=== PATIENT | male | born 1950 | race Caucasian/White ===

== ENCOUNTER → 2017-12-14 | Outpatient (CLI) | payer MEDICARE ==
--- NOTE | 2017-12-14 09:07 | XR ---
Left shoulder HISTORY: Pain 3 views of the left shoulder No comparisons The distal acromion is downturned. There is an ossific density projecting at the level of the glenohu meral joint measuring approximately 6 to 7 mm, some smaller ossific densities suspected, total of 3 t his bodies may be present. Acromioclavicular joint arthropathy changes present. 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
== END | disposition home or self-care (01) ==
LOC: RADXRMAIN 08:18
PROVIDERS: ATTEND Pediatrics
DX: M25.512 Pain in left shoulder (principal)

== ENCOUNTER → 2017-12-29 | Outpatient (CLI) | payer MEDICARE ==
--- NOTE | 2017-12-29 14:58 | MR ---
EXAMINATION TYPE: MR shoulder LT wo con DATE OF EXAM: 12/29/2017 COMPARISON: Radiograph 12/14/2017 HISTORY: 67-year-old male with left shoulder pain. TECHNIQUE: Multiplanar, multisequence imaging of the left shoulder is performed without contrast. FINDINGS: Intracapsular portion of the long biceps tendon is not well seen. The upper extracapsular portion tereza ws medial subluxation and increased signal. There is mild tenosynovial fluid. There is extensive tear involving the subscapularis tendon without the far inferior fibers remaining intact. There is mild to moderate fatty atrophy of the subscapularis muscle belly. Moderate degenerative joint space narrowing with marginal spurring and capsular hypertrophy at the ac romioclavicular joint. Trace effusion within the subacromial/subdeltoid bursa. Diffuse heterogeneity and thickening of the supraspinatus tendon and mild heterogeneous signal within the infraspinatus tendon. More focal thickening is present along the anterior supraspinatus tendon f ibers, coronal T2 FS image 10. No high-grade partial or full-thickness tear is identified. No atrophy of either supraspinatus or infraspinatus muscle bellies. Incidentally, there is mild fluid seen extending along the superficial muscle fibers of the infraspinatus muscle. Mild degenerative spurring at the glenohumeral joint with degenerative and torn superior labrum. Ther e is a small 6 mm posterior paralabral cyst. No significant glenohumeral joint effusion. No Hill-Sachs deformity or os acromiale. No suspicious bone marrow replacement. IMPRESSION: 1. Significant tear of the subscapularis tendon. Most of the tendon appears torn with only a few of t he inferior most fibers remaining intact. Mild to moderate fatty atrophy of its muscle belly. 2. Marked supraspinatus tendinosis and lesser degree of infraspinatus tendinosis without evidence of high-grade partial or full-thickness tear of either of these tendons. 3. Some fluid delaminating along the superficial muscle fibers of the infraspinatus could reflect mus dwight strain. 4. Degenerative and torn superior labrum. A 6 mm posterior paralabral cyst suggests posterior tear ex tension. 5. The intracapsular portion of the long head biceps tendon is not well seen and is probably partiall y torn. 6. Mild degenerative change of the glenohumeral joint and moderate AC joint OA.
== END | disposition home or self-care (01) ==
LOC: RADMRIMAIN 11:11
PROVIDERS: ATTEND Pediatrics
DX: S43.432A Superior glenoid labrum lesion of left shoulder, initial encounter (principal); M19.012 Primary osteoarthritis, left shoulder; M62.89 Other specified disorders of muscle; M75.82 Other shoulder lesions, left shoulder

== ENCOUNTER → 2019-04-21 | Day surgery (SDC) | payer MEDICARE ==
[2019-04-18 15:33] VITALS: BMI 25.7
--- NOTE | 2019-04-20 10:34 | HP ---
HISTORY AND PHYSICAL CHIEF COMPLAINT: Left knee pain. HISTORY OF PRESENT ILLNESS: The patient is a 68-year-old retired male who presents with progressive left knee pain for the past several months. He notes catching along with medial pain and swelling. He is having a difficult time getting around. He notes his knee feels unstable. PAST MEDICAL HISTORY: Significant for type 2 diabetes, hypercholesterolemia, and heart disease. PAST SURGICAL HISTORY: Significant for appendectomy. CURRENT MEDICATIONS: 1. Aspirin. 2. Ibuprofen. 3. Lipitor. 4. Metformin. 5. Toprol. ALLERGIES: He denies drug allergies. FAMILY HISTORY: Significant for heart disease and cancer. SOCIAL HISTORY: Significant for previous tobacco use; however, he quit in 2015. REVIEW OF SYSTEMS: Sixteen-point review of systems otherwise reviewed and is noncontributory. PHYSICAL EXAMINATION: On examination, the patient is approximately 6 feet tall, 188 pounds of mesomorphic habitus. HEENT exam is nonfocal. Neck is supple. He has painless passive motion of the left hip. Straight leg raise is negative. Active motion left knee -14 to 115 degrees of flexion. He has a large effusion. He is tender about the medial joint line and medial patellar facet. Collaterals are stable, Evonne is negative, April's elicits medial pain. His distal neurovascular exam appears intact in the left lower extremity. Previous x-rays of the left knee obtained in the office show moderate medial in addition to severe patellofemoral compartment narrowing. IMPRESSION: 1. Left knee moderate medial and severe patellofemoral compartment osteoarthrosis. 2. Possible medial meniscal tear, left knee. RECOMMENDATIONS: I talked to the patient at length regarding his condition along with treatment options. At this point, he continues to have significant pain and mechanical symptoms despite conservative measures. After thorough discussion, he opts to proceed with surgery. We will plan to proceed with arthroscopic evaluation with possible partial medial meniscectomy/medial femoral chondrectomy/possible microfracture. We will likely perform that as an outpatient procedure. The patient underwent preoperative medical and cardiac evaluation. MMODL / IJN: [id number] /
[~2019-04-21] MED LIST: DEXAMETHASONE SOD PHOSPHATE 10 MG/ML 1 ML VIAL IV ONE; EPINEPHrine (PF) 1 ML in SODIUM CHLORIDE 0.9% IRRIGATIO 3,000 ML IRRIGATION ONE; HYDROcodone/APAP 5-325MG 1 EACH TAB PO ONE; KETOROLAC 30 MG/ML 1 ML VIAL IVP ONE; LACTATED RINGERS 1,000 ML IV SCH; LIDOCAINE 1% 20 ML VIAL (10MG/ML) FOR IV START INTRADERMA ONE; LIDOCAINE 1% INJ 10MG/ML (20 ML MDV) ONE; MIDAZOLAM 2 MG/2 ML VIAL IV PRN; MIDAZOLAM 2 MG/2 ML VIAL ONE; PROPOFOL 10 MG/ML 20 ML VIAL IV ONE; fentaNYL (PF) 50 MCG/ML 2 ML AMP ONE
[2019-04-21 09:37] VITALS: RESP 16
[2019-04-21 09:52] LABS: Glucose,Whole Blood 207 mg/dL (75-99)
[2019-04-21] MEDS: ONDANSETRON 4 MG/2 ML VIAL IVP ONE ×2 (09:54→12:14)
--- NOTE | 2019-04-21 11:58 | P.OP ---
Date of Procedure: 04/21/19 Preoperative Diagnosis: Left knee internal derangement Postoperative Diagnosis: Left knee posterior medial meniscal tear/chondrocalcinosis with synovitis Procedure(s) Performed: Left knee arthroscopic partial medial meniscectomy/synovectomy of the medial, lateral, and patellofemoral articulations Anesthesia: ANTHONYA Surgeon: Toribio Mcdonald Estimated Blood Loss (ml): 10 Pathology: none sent Condition: stable Disposition: PACU Indications for Procedure: The patient's a 68-year-old gentleman who presents with progressive left knee pain and mechanical symptoms despite conservative measures. A discussion of the risks and benefits of operative intervention versus continued conservative measures was made with the patient. He opted to proceed with surgery. Operative risks to include infection, neurovascular injury, development of blood clots, possible incomplete resolution of symptoms, possible worsening symptoms and need for subsequent procedures was discussed. Informed consent was obtained. Operative Findings: As below Description of Procedure: The patient was brought to the operating room, and after induction of general anesthesia examined the left knee. Collaterals were stable, Evonne was negative, and posterior drawer was negative. The left lower extremity was prepped and draped in a normal fashion. A superior lateral portal was made through a 3 mm skin incision superior and lateral to the patella. This was used for outflow. A lateral portal was made through a 5 mm vertical skin incision lateral to the patella tendon above the joint line. Diagnostic arthroscopy was performed. On inspection of the medial compartment, a complex tear involving the posterior horn of the medial meniscus in the white-red junction was noted. This was debrided back to stable base with straight baskets and a motorized shaver. Significant chondrocalcinosis was present along with reactive synovitis of the medial, lateral, and patellofemoral compartments. The anterior medial synovitis was debrided with motorized shaver. On inspection of the lateral compartment, a grade 2/3 chondral defect was noted involving the central portion of the lateral femoral condyle. The lateral meniscus was stable and intact. Reactive synovitis involving the anterolateral compartment was debrided with a motorized shaver.. On inspection of the patellofemoral articulation grade 2-3 chondral changes were noted diffusely. Synovitis involving the patellofemoral articulation was debrided with motorized shaver. Several calcium pyrophosphate collections were in the notch and removed with a motorized shaver. The anterior cruciate ligament appeared to be intact. The gutters were clear debris. The knee was then thoroughly irrigated. The portals were closed with Steri-Strips. A sterile dressing was applied in addition to a compression stocking. The patient was awoken from general anesthesia and transferred to recovery room in good condition. Blood loss was estimated at 10 mL. No complications were incurred.
[2019-04-21 12:03] VITALS: TEMP 98.5
[2019-04-21 12:11] LABS: Glucose,Whole Blood 208 mg/dL (75-99)
[2019-04-21] MEDS: HYDROmorphone 0.5 MG/0.5 ML SYRINGE IVP PRN ×2 (12:14→12:20)
[2019-04-21 13:01] VITALS: BP 166/86; PULSE 62
== END | disposition home or self-care (01) ==
LOC: OR 09:17
PROVIDERS: ATTEND Orthopaedic Surgery
DX: S83.232A Complex tear of medial meniscus, current injury, left knee, initial encounter (principal); M11.262 Other chondrocalcinosis, left knee; M65.862 Other synovitis and tenosynovitis, left lower leg; M17.12 Unilateral primary osteoarthritis, left knee; I10 Essential (primary) hypertension; I25.10 Atherosclerotic heart disease of native coronary artery without angina pectoris; I35.1 Nonrheumatic aortic (valve) insufficiency; I77.9 Disorder of arteries and arterioles, unspecified; E11.9 Type 2 diabetes mellitus without complications; E78.2 Mixed hyperlipidemia; N40.0 Benign prostatic hyperplasia without lower urinary tract symptoms; M54.30 Sciatica, unspecified side; Z87.891 Personal history of nicotine dependence; Z79.82 Long term (current) use of aspirin; Z79.84 Long term (current) use of oral hypoglycemic drugs; Z79.1 Long term (current) use of non-steroidal anti-inflammatories (NSAID); Z79.899 Other long term (current) drug therapy; Z90.49 Acquired absence of other specified parts of digestive tract; Z77.22 Contact with and (suspected) exposure to environmental tobacco smoke (acute) (chronic); Z80.3 Family history of malignant neoplasm of breast; Z82.3 Family history of stroke; Z83.3 Family history of diabetes mellitus; Z82.49 Family history of ischemic heart disease and other diseases of the circulatory system; X58.XXXA Exposure to other specified factors, initial encounter
CPT/HCPCS: 29876; 29881; J2250; J1100; J2405; J0171; J2001; J3010; J1885; J2704; J1170

== ENCOUNTER → 2020-03-27 | Outpatient (CLI) | payer MEDICARE ==
--- NOTE | 2020-03-30 12:44 | HP ---
HISTORY AND PHYSICAL CHIEF COMPLAINT: Left knee pain. HISTORY OF PRESENT ILLNESS: Patient is a 69-year-old retired gentleman who presents with progressive left knee pain for the past several years. It has worsened recently. He has tried previous injections and medications without much relief. He notes pain is limiting his normal function and activities. He also notes stiffness and swelling. He had a previous arthroscopy in 2019. PAST MEDICAL HISTORY: Significant for hypertension, type 2 diabetes, hypercholesterolemia, and arthritis. PAST SURGICAL HISTORY: Significant for left knee arthroscopy and appendectomy. CURRENT MEDICATIONS: Aspirin, ibuprofen, metformin, Lipitor, and Toprol. He denies drug allergies. FAMILY HISTORY: Significant for heart disease and cancer. SOCIAL HISTORY: Significant for previous tobacco use; however, he quit in 2015. REVIEW OF SYSTEMS: Sixteen point review of systems otherwise reviewed and is noncontributory. PHYSICAL EXAMINATION: On examination, the patient is approximately 6 feet tall, 200 pounds of endomorphic habitus. HEENT exam is nonfocal. NECK: Supple. He has painless passive motion of his left hip. Straight leg raise is negative. Active motion left knee -12 to 110 degrees of flexion. He has a large effusion. He is tender about the medial joint line. Collaterals are stable, Evonne is negative, April's is equivocal. He has genu varum alignment. His distal neurovascular exam appears intact in the left lower extremity. X-rays to include weightbearing notch, lateral and Merchant views of the left knee obtained in the office show severe medial and patellofemoral compartment narrowing. IMPRESSION: Left knee severe tricompartmental osteoarthrosis. RECOMMENDATIONS: I talked to the patient at length regarding his condition along with treatment options. At this point, he remains quite symptomatic despite extensive conservative measures. After thorough discussion, he opts to proceed with surgery. We will plan to proceed with left total knee arthroplasty. Risks and benefits were discussed at length in layman's terms. We will institute DVT prophylaxis postoperatively. MMODL / IJN: [id number] /
== END | disposition home or self-care (01) ==
LOC: LABPAT 12:37
PROVIDERS: ATTEND Orthopaedic Surgery
DX: Z01.812 Encounter for preprocedural laboratory examination (principal)
CPT/HCPCS: 87070

== ENCOUNTER 2020-04-09 11:08 | Day surgery (SDC) | payer MEDICARE ==
[2020-04-05 11:17] VITALS: BMI 26.4
[~2020-04-09 11:08] MED LIST changes: +ACETAMINOPHEN TAB 500 MG TAB PO ONE; -EPINEPHrine (PF) 1 ML in SODIUM CHLORIDE 0.9% IRRIGATIO 3,000 ML IRRIGATION ONE; -HYDROcodone/APAP 5-325MG 1 EACH TAB PO ONE; +HYDROmorphone 0.5 MG/0.5 ML SYRINGE IVP PRN; -KETOROLAC 30 MG/ML 1 ML VIAL IVP ONE; -LACTATED RINGERS 1,000 ML IV SCH; -LIDOCAINE 1% 20 ML VIAL (10MG/ML) FOR IV START INTRADERMA ONE; -LIDOCAINE 1% INJ 10MG/ML (20 ML MDV) ONE; +MELOXICAM 7.5 MG TAB PO ONE; -MIDAZOLAM 2 MG/2 ML VIAL ONE; +ONDANSETRON 4 MG/2 ML VIAL IVP ONE; -PROPOFOL 10 MG/ML 20 ML VIAL IV ONE; +TRANEXAMIC ACID 1,000 MG in SODIUM CHLORIDE 0.9% 100 ML IVPB ONE; -fentaNYL (PF) 50 MCG/ML 2 ML AMP ONE
[2020-04-09 11:32] LABS: Glucose,Whole Blood 125 mg/dL (75-99)
[2020-04-09] MEDS ORDERED: ONDANSETRON 4 MG/2 ML VIAL ONE (11:33)
[2020-04-09] MEDS ORDERED: ACETAMINOPHEN TAB 500 MG TAB ONE (11:33)
[2020-04-09] MEDS: LACTATED RINGERS 1,000 ML IV SCH (11:36)
[2020-04-09] MEDS ORDERED: MIDAZOLAM 2 MG/2 ML VIAL IV ONE (12:08)
[2020-04-09] MEDS ORDERED: fentaNYL (PF) 50 MCG/ML 2 ML AMP IV ONE (12:08)
[2020-04-09] MEDS ORDERED: ROPIVACAINE 246.25 MG, EPINEPHrine 0.5 MG, KETOROLAC 30 MG, cloNIDine HCL/PF 80 MCG, WA... MISCELLANE ONE ×5 (12:46)
[2020-04-09] MEDS ORDERED: TRANEXAMIC ACID 1,000 MG/10 ML VIAL ONE (13:29)
[2020-04-09] MEDS ORDERED: PROPOFOL 10 MG/ML 20 ML VIAL IV ONE (13:29)
[2020-04-09] MEDS ORDERED: SODIUM CHLORIDE 0.9% 100 ML BAG ONE (13:29)
[2020-04-09] MEDS ORDERED: fentaNYL (PF) 50 MCG/ML 2 ML AMP ONE (13:29)
[2020-04-09] MEDS ORDERED: MIDAZOLAM 2 MG/2 ML VIAL ONE (13:29)
[2020-04-09] MEDS ORDERED: LACTATED RINGERS 1,000 ML IV ONE (13:56)
[2020-04-09] MEDS ORDERED: ceFAZolin 3,000 MG in SODIUM CHLORIDE 0.9% IRRIGATIO 3,000 ML IRRIGATION ONE (14:01)
[2020-04-09] MEDS ORDERED: ROPIVACAINE 0.2%-NS ON-Q PUMP 1,090 MG, EMPTY PAIN BALL 1 EACH MISCELLANE PRN (14:03)
--- NOTE | 2020-04-09 14:05 | P.ANPRN ---
Procedure Note - Anesthesia - Nerve Block Performed Left Adductor Canal Time Out Performed: Yes (12:08) Date of Procedure: 04/09/20 Procedure Start Time: Procedure Stop Time: Location of Patient: PreOp Indication: Acute Post-Operative Pain, Requested by Surgeon Sedation Type: Sedate with meaningful contact maintained Preparation: Sterile Prep, Sterile Dressing Position: Supine Catheter: Indwelling Needle Types: Pajunk Needle Gauge: 21 Ultrasound used to visualize needle placement: Yes Ultrasound used to observe medication spread: Yes Injectate: 0.5% Ropivacaine (see comment for volume) (20cc) Blood Aspirated: No Pain Paresthesia on Injection Noted: No Resistance on Injection: Normal Image Stored and Saved: Yes Events: Uneventful and Well Tolerated
[2020-04-09] MEDS ORDERED: NALOXONE 0.4 MG/ML 1 ML VIAL IV PRN (14:58)
[2020-04-09] MEDS ORDERED: MAGNESIUM HYDROXIDE 2,400 MG/10 ML CUP PO PRN (14:58)
[2020-04-09] MEDS ORDERED: ONDANSETRON 4 MG/2 ML VIAL IVP PRN (14:58)
[2020-04-09] MEDS ORDERED: traMADol 50 MG TAB PO PRN (14:58)
[2020-04-09] MEDS ORDERED: ACETAMINOPHEN TAB 325 MG TAB PO PRN (14:58)
[2020-04-09] MEDS ORDERED: HYDROcodone/APAP 5-325MG 1 EACH TAB PO PRN (14:58)
[2020-04-09] MEDS ORDERED: HYDROmorphone 0.5 MG/0.5 ML SYRINGE IVP PRN (14:58)
--- NOTE | 2020-04-09 15:42 | P.OP ---
Date of Procedure: 04/09/20 Preoperative Diagnosis: Left knee severe tricompartmental osteoarthrosis Postoperative Diagnosis: Same Procedure(s) Performed: Left total knee arthroplastycruciate retainingcemented Implants: [employer] journey size 7 cemented femoral component, size 6 cemented tibial component, 10 mm articular surface, 38 mm cemented patellar component. This is a cruciate retaining implant. Anesthesia: regional, local, spinal Surgeon: Toribio Mcdonald Steel Die Printer #1: Ted Jenkins Estimated Blood Loss (ml): 50 Pathology: other (Bone fragments) Condition: stable Disposition: PACU Indications for Procedure: The patient's 69-year-old male presents with progressive left knee pain secondary to osteoarthrosis despite conservative measures. A discussion of the risks and benefits of operative intervention versus continued conservative measures was made with patient. He opted to proceed with surgery. Operative risks to include infection, neurovascular injury, fracture, development of blood clots, possible component loosening, possible component failure need for subsequent procedures was discussed. Informed consent was obtained. Operative Findings: As below Description of Procedure: The patient was brought to the operating room, and after induction of spinal anesthesia the left lower extremity was prepped and draped in a normal fashion. The tourniquet was inflated to 270 mmHg. A longitudinal incision extending 3 finger breaths above the superior pole of the patella extending to the medial aspect the tibial tubercle was then made. The skin and subcutaneous tissues were divided sharply. Electrocautery was used for hemostasis. A medial parapatellar arthrotomy was then performed. The medial soft tissues to include the superficial and deep portions of the medial collateral ligament as well as the medial hamstring tendons were elevated subperiosteally. The proximal medial tibia osteophytes were carefully removed. The patella was everted. The knee wa s flexed. A portion of the retropatellar fat pad was excised sharply. The anterior cruciate ligament was sacrificed. A starting hole was made in the distal femur 1 cm anterior to the posterior cruciate origin. An intramedullary femoral guide was gently inserted planning on 5 valgus distal cut with 9 mm distal resection. The cutting block was pinned in place. The distal cut was then made. The posterior referencing sizing guide was utilized. 3 of external rotation was built into the system and verified off the trans- epicondylar axis and the posterior condyles. I felt size 7 was most appropriate. The cutting block was pinned in place. The anterior, posterior, and chamfer cuts were then made. The bone fragments were removed. The trial size 7 femoral component was then placed and was fully seated. There was good anterior to posterior and medial to lateral fit. The distal peg holes were then drilled. The trial component was then removed. Attention was then paid towards preparing the proximal tibia. An extra medullary guide was utilized in line with the tibial shaft and second metatarsal distally. A 3 posterior slope was planned. I planned on 2 mm resection from the medial compartment. The cutting block was pinned in place. The proximal tibial cut was then made. The bone was removed in one fragment. The remnants of the medial and lateral menisci were excised the capsule junction with electrocautery. The tibia sized most appropriately at size 6. The posterior osteophytes off the distal femur were carefully removed with a curved osteotome. The trial tibial and femoral components were placed along with a 10 millimeters articular surface. I was able to obtain full flexion and extension with good stability with varus and valgus stress. After several flexion and extension cycles, the tibial rotation was marked with electrocautery in line with the medial one third of the tibial tubercle. Attention was then paid towards preparing the patella. A patella reamer was utilized taking this down to 14 mm of bone stock. A good flush cut was made. The patella sized most appropriately at 38 millimeters. The peg holes were then drilled. The trial component was placed. The knee was taken through a range of motion. I had good patellofemoral tracking with no hands technique. The trial components were then removed. The tibia was prepared in t he appropriate rotation with appropriate drill and keel punch. The flexion and extension gaps were checked and felt to be symmetric. The posterior soft tissues were injected with ropivacaine. The bony surfaces were prepared with pulsatile lavage and dried. The deep tibial component was then cemented in place and was fully seated. Excess cement was removed. The femoral component was cemented in place and was fully seated. Again excess cement was removed. The trial 10 millimeters surface was then inserted in the knee was put in full extension. The patella component was cemented in place. After the cement had sufficiently hardened, the knee was again taken through a range of motion. Again there was good stability in flexion and extension with varus and valgus stress. The trial articular surface was then removed. The final articular surface was placed and was impacted. Care was taken to avoid any soft tissue interposition. Pulsatile lavage was again utilized. The tourniquet was deflated with approximately 60 minutes total tourniquet time. There was minimal drainage therefore a deep drain was not placed. The medial parapatellar arthrotomy was then closed with #2 Ethibond suture. The subcutaneous tissues were reapproximated interrupted 2-0 Vicryl sutures. The skin was reapproximated with 3-0 subarticular strata fix suture. Skin tape and adhesive was applied. A sterile dressing was applied. The patient was then awoken from sedation and transferred to recovery room in good condition. Blood loss was estimated at 50 milliliters. No complications were incurred. Sponge and needle counts were correct at the end the case. Chris BRAND assisted during the major components this case to include exposure, bone resection, and implantation.
--- NOTE | 2020-04-09 15:57 | XR ---
EXAMINATION TYPE: XR knee limited LT DATE OF EXAM: 04/09/2020 CLINICAL HISTORY: Left knee pain and arthritis status post total knee replacement. TECHNIQUE: Portable AP and crosstable lateral views of the left knee are obtained immediately postop eratively. COMPARISON: None FINDINGS: Metallic hardware from total left knee arthroplasty is seen and appears satisfactory in al ignment and position. There is evidence of recent surgery with diffuse anterior subcutaneous gas. Va scular calcifications. IMPRESSION: METALLIC HARDWARE FROM TOTAL LEFT KNEE ARTHROPLASTY IS SATISFACTORY IN ALIGNMENT.
[2020-04-09 16:17] LABS: Glucose,Whole Blood 161 mg/dL (75-99)
[2020-04-09 20:42] LABS: Glucose,Whole Blood 291 mg/dL (75-99)
[2020-04-09] MEDS ORDERED: SENNOSIDES-DOCUSATE SODIUM 1 EACH TAB PO SCH (21:00)
[2020-04-09] MEDS: INSULIN ASPART (NovoLOG) 100 UNIT/ML VIAL SQ SCH (21:10)
--- NOTE | 2020-04-09 21:16 | P.CONS ---
History of Present Illness - Reason for Consult Consult date: 04/09/20 Medical management Requesting physician: Toribio Mcdonald - Chief Complaint Left knee surgery - History of Present Illness Consultation: This is a pleasant 69-year-old patient of Dr. Kike Mcgee. Chronic stable medical conditions include osteoarthritis, hypertension, hyperlipidemia, diabetes, nonobstructive coronary artery disease. Patient has undergone left total knee arthroplasty. Pain control. No nausea vomiting. Laying in bed. Review of systems: GEN.: None EYES: None HEENT: None NECK: None RESPIRATORY: None CARDIOVASCULAR: None GASTROINTESTINAL: None GENITOURINARY: None MUSCULOSKELETAL: Joint pains LYMPHATICS: None HEMATOLOGICAL: None PSYCHIATRY: None NEUROLOGICAL: None Past medical history to include: Nonobstructive coronary artery disease, diabetes, hypertension, osteoarthritis, hyperlipidemia Social history: Alcohol occasionally, smoked a pack interval 40 years stopped 6 years ago, , retired from the [employer] Physical examination: VITAL SIGNS: 50, 16, 155/78, 97% on room air GENERAL: BMI 26.3, laying in bed, comfortable, awake. EYES: Pupils equal. Conjunctiva normal. HEENT: External appearance of nose and ears normal, oral cavity grossly normal. NECK: JVD not raised; masses not palpable. HEART: First and second heart sounds are normal; no edema. LUNGS: Respiratory rate normal; clear to auscultation. ABDOMEN: Soft, nontender, liver spleen not palpable, no masses palpable. PSYCH: Alert and oriented x3; mood and affect normal. MUSCULAR skeletal: Evidence of OA especially in the hands, dressing over the left knee with Mj wrap NEUROLOGICAL: Cranial nerves grossly intact; no facial asymmetry, power and sensation grossly intact. LYMPHATICS: No lymph nodes palpable in the axilla and neck Investigations: Accu-Cheks 125, 161, 291 Assessment: -Left total knee arthroplasty, -nonobstructive coronary artery disease -Diabetes mellitus type 2 -Essential hypertension -Hyperlipidemia -Primary osteoarthritis Plan: Home medications to resume. Patient is on Lovenox for DVT prophylaxis. Accu- Cheks to be followed. Pain control. Care was discussed with the patient. Question also. Thank you Dr. Almazan Past Medical History Past Medical History: Coronary Artery Disease (CAD), Diabetes Mellitus, Hyperlipidemia, Hypertension, Osteoarthritis (OA) Additional Past Medical History / Comment(s): spouse states has "some blockages but not able to have stent" History of Any Multi-Drug Resistant Organisms: None Reported Past Surgical History: Appendectomy, Heart Catheterization, Orthopedic Surgery Additional Past Surgical History / Comment(s): left knee meniscus repair, COLONOSCOPY Past Anesthesia/Blood Transfusion Reactions: No Reported Reaction Past Psychological History: No Psychological Hx Reported Smoking Status: Former smoker Past Alcohol Use History: Occasional Additional Past Alcohol Use History / Comment(s): quit smoking 2014 yrs ago, smoked 40 yrs. 1ppd Past Drug Use History: None Reported - Past Family History Mother Family Medical History: Cancer Medications and Allergies Home Medications Medication Instructions Recorded Confirmed Type Aspirin 81 mg PO DAILY 11/07/14 04/09/20 History Atorvastatin [Lipitor] 80 mg PO HS 11/07/14 04/09/20 History Metoprolol Tartrate [Lopressor] 25 mg PO BID 11/07/14 04/09/20 History metFORMIN HCL [Glucophage] 500 mg PO BID 11/07/14 04/09/20 History Cyanocobalamin (Vitamin B-12) 1,000 mcg PO DAILY 04/18/19 04/09/20 History [Vitamin B-12] Ibuprofen 800 mg PO Q6H PRN 04/18/19 04/09/20 History Iron 18 mg PO DAILY 04/05/20 04/09/20 History glipiZIDE [Glucotrol] 2.5 mg PO AC-BRKFST 04/05/20 04/09/20 History Allergies Allergy/AdvReac Type Severity Reaction Status Date / Time No Known Allergies Allergy Verified 04/09/20 11:34 Physical Exam Vitals: Vital Signs Temp Pulse Pulse Resp BP BP BP 04/09/20 16:26 50 L 16 155/78 04/09/20 16:11 50 L 16 151/76 04/09/20 15:56 49 L 16 160/76 04/09/20 15:40 49 L 16 151/75 04/09/20 15:26 97.5 F L 50 L 16 162/74 04/09/20 12:22 60 16 162/85 04/09/20 12:03 179/81 04/09/20 11:44 185/83 04/09/20 11:25 98.4 F 62 16 212/93 Pulse Ox 04/09/20 16:26 97 04/09/20 16:11 96 04/09/20 15:56 97 08/04/20 15:40 97 04/09/20 15:26 99 04/09/20 12:22 99 04/09/20 12:03 04/09/20 11:44 04/09/20 11:25 98 Intake and Output 04/09/20 04/09/20 04/09/20 06:59 14:59 22:59 Intake Total 1451 100 Output Total 50 Balance 1451 50 Intake: IV 1451 100 Output: Estimated Blood Loss 50 Other: # Voids 0 Weight 87.8 kg 87.8 kg Results Labs: Abnormal Lab Results - Last 24 Hours (Table) 04/09/20 04/09/20 04/09/20 Range/Units 11:29 16:16 20:38 POC Glucose (mg/dL) 125 H 161 H 291 H (75-99) mg/dL
[2020-04-10 03:01] VITALS: PULSE 72
[2020-04-10] MEDS: HYDROcodone/APAP 5-325MG 1 EACH TAB PO PRN ×2 (06:16→12:00)
[2020-04-10] MEDS: LACTATED RINGERS 1,000 ML IV SCH (06:17)
[2020-04-10 06:54] LABS: Glucose,Whole Blood 153 mg/dL (75-99)
[2020-04-10 07:28] VITALS: BP 165/77; RESP 17; TEMP 98.3
--- NOTE | 2020-04-10 08:05 | P.PN ---
Progress Note - Text The patient is status post, left total knee arthroplasty, adductor canal catheter placement. The catheter was placed for postoperative pain control. Ropivacaine 0.2% is infusing at 8 mLs per hour. The patient has no complaints of left lower extremity numbness or weakness. Patient's VAS score is 0 -10. Assessment: Patient's adductor canal catheter is in place and working appropriately. Plan: continue infusion and adjust it as needed.
[2020-04-10] MEDS: INSULIN ASPART (NovoLOG) 100 UNIT/ML VIAL SQ SCH ×2 (08:12→12:00)
[2020-04-10] MEDS ORDERED: metFORMIN 500 MG TAB PO SCH (09:00)
[2020-04-10] MEDS ORDERED: METOPROLOL TARTRATE 25 MG TAB PO SCH (09:00)
[2020-04-10] MEDS ORDERED: CYANOCOBALAMIN 500 MCG TAB PO SCH (09:00)
[2020-04-10] MEDS ORDERED: ENOXAPARIN 40 MG/0.4 ML SYRINGE SQ SCH (09:00)
[2020-04-10 09:10] LABS: Basophils % (A) 0 %; Eosinophils % (A) 0 %; HCT 34.8 % (39.0-53.0); HGB 11.5 gm/dL (13.0-17.5); Lymphocytes # (A) 1.6 k/uL (1.0-4.8); Lymphocytes % (A) 13 %; MCH 32.1 pg (25.0-35.0); MCV 97.3 fL (80.0-100.0); Mean Platelet Volume 9.4; Monocytes # (A) 0.9 k/uL (0-1.0); Monocytes % (A) 7 %; Neutrophils # (A) 10.3 k/uL (1.3-7.7); Neutrophils % (A) 80 %; Platelet Count 152 k/uL (150-450); RBC 3.58 m/uL (4.30-5.90); RDW 13.4 % (11.5-15.5); WBC 12.9 k/uL (3.8-10.6)
--- NOTE | 2020-04-10 10:41 | P.PN ---
Subjective Progress Note Date: 04/10/20 Principal diagnosis: Status post left total knee arthroplasty Patient is examined today at bedside, he is doing very well. He's done very well with physical therapy. He denies any chest pain or shortness of breath. Objective - Vital Signs Vital signs: Vital Signs Temp 98.3 F 04/10/20 07:00 Pulse 72 04/10/20 07:00 Resp 17 04/10/20 07:00 BP 165/77 04/10/20 07:00 Pulse Ox 98 04/10/20 07:00 Intake & Output 04/09/20 04/10/20 04/10/20 18:59 06:59 18:59 Intake Total 1551 Output Total 50 1600 Balance 1501 -1600 Weight 87.8 kg Intake: IV 1551 Output: Urine 1600 Estimated Blood Loss 50 Other: Voiding Method Urinal # Voids 1 - Exam Left lower extremity: Incision is clean, dry, and intact. The following dressing is in good condition. There is minimal soft tissue swelling and ecchymosis surrounding the medial and lateral aspects of the incision. Calf is soft, no tenderness with palpation. Plantar flexion, dorsiflexion, EHL, FHL are intact. Sensory exam to light touch throughout the extremity is intact, dorsal pedis pulses 2+. - Labs CBC & Chem 7: 04/10/20 07:51 Labs: Abnormal Lab Results - Last 24 Hours (Table) 04/09/20 04/09/20 04/09/20 Range/Units 11:29 16:16 20:38 WBC (3.8-10.6) k/uL RBC (4.30-5.90) m/uL Hgb (13.0-17.5) gm/dL Hct (39.0-53.0) % Neutrophils # (1.3-7.7) k/uL POC Glucose (mg/dL) 125 H 161 H 291 H (75-99) mg/dL 04/10/20 04/10/20 Range/Units 06:52 07:51 WBC 12.9 H (3.8-10.6) k/uL RBC 3.58 L (4.30-5.90) m/uL Hgb 11.5 L (13.0-17.5) gm/dL Hct 34.8 L (39.0-53.0) % Neutrophils # 10.3 H (1.3-7.7) k/uL POC Glucose (mg/dL) 153 H (75-99) mg/dL Assessment and Plan Assessment: Status post left total knee arthroplasty Plan: Pain control, plan for discharge home on oral medication GI and DVT prophylaxis, aspirin 81 mg twice a day for a month Wound care instructions discussed Icing and elevating techniques discussed Home physical therapy and nursing Medical recommendations Discharge planning: Plan for discharge home today Time with Patient: Less than 30
--- NOTE | 2020-04-10 10:44 | P.DS ---
Providers Date of admission: 04/09/2020 Expected date of discharge: 04/10/20 Attending physician: Toribio Mcdonald Consults: 04/09/20 15:00 Consult Physician Routine Consulting Provider: Nestor Maki Consult Reason/Comments: Medical Management Do you want consulting provider notified?: Yes Primary care physician: Anjel Mcgee [facility] Course: Date of admission: 04/09/2020 Date of discharge: 04/10/2020 Admission diagnosis: Status post left total knee arthroplasty Discharge diagnosis: Same Attending physician: Dr Mcdonald Surgical procedures: Left total knee arthroplasty Brief history: Patient is a 69-year-old male with a history of progressive primary left knee arthritis. At this point patient has failed conservative treatment measures and has opted to proceed with a elective left total knee arthroplasty. Hospital course: Details of patient's surgery can be found in operative report. Patient tolerated the procedure well and was subsequently transported to orth opedic floor. Patient's orthopeidc and medical care was provided daily. Patient had daily laboratory tests performed for evaluation of overall blood counts. Patient had daily physical therapy to include strengthening range of motion as well as education with walker ambulation. Patient was treated with Lovenox for their postoperative DVT prophylaxis during their inpatient stay. Patient was noted to have a relatively uneventful postoperative course. Patient reported satisfactory pain control with oral pain medications by postoperative day 0. Patient showed satisfactory progress with physical therapy. Patient moved steadily through the program and had no difficulty meeting the goals by postoperative day 1. Given patient's otherwise satisfactory course and having met physical therapy goals, plan is to discharge patient home on postoperative day 1. Discharge condition/disposition: Patient will be discharged home in stable condition. Discharge medications: Instructions are given on resumption of patient's normal daily medications per primary care recommendation, in addition patient will be prescribed [place] 5 mg/325 mg, Colace 100 mg, aspirin 81 mg. Discharge instructions: 1. Wound care and infection precautions, keep incision dry and covered while showering, no lotions, creams, moisturizers. No soaking, tubs, pools, hottubs. Do not scrub over the incision. 2. Weight-bear as tolerated with walker / cane until follow-up. 3. Ice and elevate when necessary. Do not exceed 20 minutes per hour with ice pack. 4. Utilize compression sleeve until seen at first follow up appointment. 5. Visiting nursing care. 6. Home physical therapy including home CPM. 7. Pain meds and anticoagulants per prescription. 8. Pain medication has potential to cause constipation. Increase oral fluid and fiber intake. Contact primary care provider if you have not had a bowel movement within 48 hours after discharge 9. No anti-inflammatory medication until discussed at first post operative visit, this including Motrin, Aleve, Mobic, Diclofenac. 10. Follow up in office at 2 weeks postop with Chris Jenkins PA-C 11. Follow up with your primary care doctor 7-10 days after discharge. 12. Contact [facility] with any questions, . Procedures: Left total knee arthroplasty Patient Condition at Discharge: Good Plan - Discharge Summary Discharge Rx Participant: Yes New Discharge Prescriptions: New Aspirin [Adult Low Dose Aspirin EC] 81 mg PO BID #60 tablet. Docusate [Colace] 100 mg PO DAILY #30 capsule Hydrocodone/Acetaminophen [[place] 5-325] 1 - 2 each PO Q6HR PRN #40 tab PRN Reason: Pain Discontinued Aspirin 81 mg PO DAILY No Action Metoprolol Tartrate [Lopressor] 25 mg PO BID Atorvastatin [Lipitor] 80 mg PO HS metFORMIN HCL [Glucophage] 500 mg PO BID Cyanocobalamin (Vitamin B-12) [Vitamin B-12] 1,000 mcg PO DAILY Ibuprofen 800 mg PO Q6H PRN PRN Reason: Pain glipiZIDE [Glucotrol] 2.5 mg PO AC-BRKFST Iron 18 mg PO DAILY Discharge Medication List Atorvastatin [Lipitor] 80 mg PO HS 11/07/14 [History] Metoprolol Tartrate [Lopressor] 25 mg PO BID 11/07/14 [History] metFORMIN HCL [Glucophage] 500 mg PO BID 11/07/14 [History] Cyanocobalamin (Vitamin B-12) [Vitamin B-12] 1,000 mcg PO DAILY 04/18/19 [History] Ibuprofen 800 mg PO Q6H PRN 04/18/19 [History] Iron 18 mg PO DAILY 04/05/20 [History] glipiZIDE [Glucotrol] 2.5 mg PO AC-BRKFST 04/05/20 [History] Aspirin [Adult Low Dose Aspirin EC] 81 mg PO BID #60 tablet. 04/10/20 [Rx] Docusate [Colace] 100 mg PO DAILY #30 capsule 04/10/20 [Rx] Hydrocodone/Acetaminophen [[place] 5-325] 1 - 2 each PO Q6HR PRN #40 tab 04/10/20 [Rx] Follow up Appointment(s)/Referral(s): Anjel Mcgee MD [Primary Care Provider] - 1 Week Ted Jenkins PAC [PHYSICIAN AUTOMATION TEST ENGINEER] - 04/24/20 2:10 pm Activity/Diet/Wound Care/Special Instructions: Orthopedic Discharge Instructions: 1. Wound care and infection precautions, keep incision dry and covered while showering, no lotions, creams, moisturizers. No soaking, pools, hot tubs. Do not scrub over incision. 2. Weight-bear as tolerated with walker / cane until follow-up. 3. Ice and elevate when necessary. Do not exceed 20 minutes per hour with ice pack. 4. Utilize compression sleeve until seen at first follow up appointment. 5. Pain meds and anticoagulants per prescription. 6. Pain medication has potential to cause constipation. Increase oral fluid and fiber intake. Contact primary care provider if you have not had a bowel movement within 48 hours after discharge. 7. No anti-inflammatory medication until discussed at first post operative visit, this including Motrin, Aleve, Mobic, Diclofenac. 8. Follow up in office at 2 weeks postop with Chris Jenkins PA-C 9. Follow up with your primary care doctor 7-10 days after discharge. 10. Contact [facility] with any questions, . Discharge Disposition: HOME WITH HOME HEALTH SERVICES
[2020-04-10 11:20] LABS: Glucose,Whole Blood 205 mg/dL (75-99)
[2020-04-10] MEDS ORDERED: ATORVASTATIN 80 MG TAB PO SCH (21:00)
--- NOTE | 2020-04-10 23:33 | P.PN ---
Progress Note - Text Progress Note Date: 04/10/20 - Chief Complaint Left knee surgery Consultation: This is a pleasant 69-year-old patient of Dr. Kike Mcgee. Chronic stable medical conditions include osteoarthritis, hypertension, hyperlipidemia, diabetes, nonobstructive coronary artery disease. Patient has undergone left total knee arthroplasty. Today-pain control. Did tolerate her diet. No dizziness, lightheadedness. Did work with therapy. Review of systems: Was done for constitutional, cardiovascular, GI, pulmonary musculoskeletal. relevant finding as above Current medications reviewed in today's electronic records Physical examination: VITAL SIGNS: 98.3, 72, 17, 165/77, 98% room air GENERAL: Sitting up, comfortable EYES: Pupils equal. Conjunctiva normal. HEENT: External appearance of nose and ears normal, oral cavity grossly normal. NECK: JVD not raised; masses not palpable. HEART: First and second heart sounds are normal; no edema. LUNGS: Respiratory rate normal; clear to auscultation. ABDOMEN: Soft, nontender, liver spleen not palpable, no masses palpable. PSYCH: Alert and oriented x3; mood and affect normal. MUSCULAR skeletal: Evidence of OA especially in the hands, dressing over the left knee with Mj wrap Investigations: White count 12.9 hemoglobin 11.5 Accu-Cheks 205 Assessment: -Left total knee arthroplasty, -nonobstructive coronary artery disease -Diabetes mellitus type 2 -Essential hypertension -Hyperlipidemia -Primary osteoarthritis -Leukocytosis is reactive-secondary to surgery. No clinical evidence of infection Plan: Doing well. Continue current medications. Thank you Dr. Almazan
== END 2020-04-10 13:04 | disposition home health service (06) ==
LOC: OR 11:08 → 4SSUR 14:57 → OR 04-10 13:04
PROVIDERS: ATTEND Orthopaedic Surgery
DX: M17.12 Unilateral primary osteoarthritis, left knee (principal); D72.829 Elevated white blood cell count, unspecified; I25.10 Atherosclerotic heart disease of native coronary artery without angina pectoris; I10 Essential (primary) hypertension; I35.1 Nonrheumatic aortic (valve) insufficiency; E78.2 Mixed hyperlipidemia; N40.0 Benign prostatic hyperplasia without lower urinary tract symptoms; E11.9 Type 2 diabetes mellitus without complications; E78.5 Hyperlipidemia, unspecified; Z79.1 Long term (current) use of non-steroidal anti-inflammatories (NSAID); Z79.84 Long term (current) use of oral hypoglycemic drugs; Z79.82 Long term (current) use of aspirin; Z79.899 Other long term (current) drug therapy; Z87.891 Personal history of nicotine dependence; Z90.49 Acquired absence of other specified parts of digestive tract; Z98.890 Other specified postprocedural states; Z80.9 Family history of malignant neoplasm, unspecified; Z82.49 Family history of ischemic heart disease and other diseases of the circulatory system; Z80.3 Family history of malignant neoplasm of breast; Z83.3 Family history of diabetes mellitus; Z82.3 Family history of stroke
CPT/HCPCS: 97162; 64448; 76942; 85025; 73560; 27447; C1713; C1776; J2250; J0171; J1100; J0690 ×3; J2405; J1650; J3010; J1885; J2795 ×2; J0735; 88300

== ENCOUNTER 2020-11-26 08:14 | Day surgery (SDC) | payer MEDICARE ==
[2020-11-25 13:35] VITALS: BMI 27.1
[~2020-11-26 08:14] MED LIST changes: -ACETAMINOPHEN TAB 500 MG TAB PO ONE; -DEXAMETHASONE SOD PHOSPHATE 10 MG/ML 1 ML VIAL IV ONE; -HYDROmorphone 0.5 MG/0.5 ML SYRINGE IVP PRN; +LACTATED RINGERS 1,000 ML IV SCH; -MELOXICAM 7.5 MG TAB PO ONE; -MIDAZOLAM 2 MG/2 ML VIAL IV PRN; -ONDANSETRON 4 MG/2 ML VIAL IVP ONE; -TRANEXAMIC ACID 1,000 MG in SODIUM CHLORIDE 0.9% 100 ML IVPB ONE
[2020-11-26 08:47] VITALS: TEMP 97.1
[2020-11-26] MEDS ORDERED: LIDOCAINE 1% (10MG/ML) FOR IV START INTRADERMA ONE (08:49)
[2020-11-26 08:55] LABS: Glucose,Whole Blood 100 mg/dL (75-99)
[2020-11-26] MEDS ORDERED: IV FLUID CONTINUATION 1,000 ML IV ONE (09:08)
[2020-11-26] MEDS ORDERED: PROPOFOL 10 MG/ML 20 ML VIAL IV ONE (09:12)
--- NOTE | 2020-11-26 09:15 | P.GSHP ---
History of Present Illness H&P Date: 11/26/20 Chief Complaint: Colon cancer screening Patient here today for colonoscopy. Last colonoscopy 2014. Patient has personal history of colon polyps. No bowel complaints. Past Medical History Past Medical History: Coronary Artery Disease (CAD), Diabetes Mellitus, Hyperlipidemia, Hypertension, Osteoarthritis (OA) Additional Past Medical History / Comment(s): spouse states has "some blockages but not able to have stent" History of Any Multi-Drug Resistant Organisms: None Reported Past Surgical History: Appendectomy, Heart Catheterization, Orthopedic Surgery Additional Past Surgical History / Comment(s): left total knee replacement, left knee meniscus repair, COLONOSCOPY Past Anesthesia/Blood Transfusion Reactions: No Reported Reaction Smoking Status: Former smoker - Past Family History Mother Family Medical History: Cancer Medications and Allergies Home Medications Medication Instructions Recorded Confirmed Type Atorvastatin [Lipitor] 80 mg PO HS 11/07/14 11/25/20 History Metoprolol Tartrate [Lopressor] 25 mg PO BID 11/07/14 11/25/20 History metFORMIN HCL [Glucophage] 500 mg PO BID 11/07/14 11/25/20 History Cyanocobalamin (Vitamin B-12) 500 mcg PO DAILY 04/18/19 11/26/20 History [Vitamin B-12] Ibuprofen 800 mg PO Q6H PRN 04/18/19 11/25/20 History Iron 18 mg PO BID 04/05/20 11/26/20 History glipiZIDE [Glucotrol] 5 mg PO AC-BRKFST 04/05/20 11/26/20 History Aspirin [Adult Low Dose Aspirin EC] 81 mg PO DAILY 11/25/20 11/25/20 History Allergies Allergy/AdvReac Type Severity Reaction Status Date / Time No Known Allergies Allergy Verified 11/26/20 08:43 Surgical - Exam Vital Signs Temp Pulse Resp BP Pulse Ox 97.1 F L 79 16 139/79 98 11/26/20 08:45 11/26/20 08:45 11/26/20 08:45 11/26/20 08:45 11/26/20 08:45 Physical exam: General: Well-developed, well-nourished HEENT: Normocephalic, sclerae nonicteric Abdomen: Nontender, nondistended Extremities: No edema Neuro: Alert and oriented Results - Labs Abnormal Lab Results - Last 24 Hours (Table) 11/26/20 Range/Units 08:50 POC Glucose (mg/dL) 100 H (75-99) mg/dL Assessment and Plan (1) Colon cancer screening Narrative/Plan: Will proceed with colonoscopy Current Visit: Yes Status: Acute Code(s): Z12.11 - ENCOUNTER FOR SCREENING FOR MALIGNANT NEOPLASM OF COLON SNOMED Code(s): 463042501
--- NOTE | 2020-11-26 09:42 | P.PCN ---
Date of Procedure: 11/26/20 Procedure(s) Performed: PREOPERATIVE DIAGNOSIS: Colon cancer screening POSTOPERATIVE DIAGNOSIS: Cecal polyp 2, sigmoid colon polyp PROCEDURE: Colonoscopy with snare polypectomy ANESTHESIA: MAC SURGEON: Cj Rand M.D. SPECIMENS: Cecal polyp, sigmoid polyp ENDOSCOPIC PROCEDURE: The patient was placed on the endoscopy table in the left decubitus position. The Olympus colonoscope was inserted into the anus and passed under direct visualization to the base of the cecum. The appendiceal orifice was visualized. From that point the scope was slowly withdrawn inspecting all surfaces carefully. There were 2 polyps at the base of the cecum. Both removed using the snare with cautery technique. The remainder of the ascending transverse and descending colon appeared normal. In the sigmoid colon a strangulated polyp was seen and removed using the snare with cautery technique. The remainder of the sigmoid and rectum appeared normal. There was no visible diverticulosis. Digital rectal examination was normal. The patient was taken to the recovery room in stable condition per anesthesia guidelines. RECOMMENDATIONS: Resume diet. Follow colonoscopy anticipated 5 years
[2020-11-26 10:00] VITALS: BP 137/67; PULSE 78; RESP 18
== END 2020-11-26 10:16 | disposition home or self-care (01) ==
LOC: ORWHC2ENDO 08:14
PROVIDERS: ATTEND Surgery
DX: Z12.11 Encounter for screening for malignant neoplasm of colon (principal); D12.0 Benign neoplasm of cecum; K63.5 Polyp of colon; I25.10 Atherosclerotic heart disease of native coronary artery without angina pectoris; E11.9 Type 2 diabetes mellitus without complications; E78.5 Hyperlipidemia, unspecified; I10 Essential (primary) hypertension; M19.90 Unspecified osteoarthritis, unspecified site; Z90.89 Acquired absence of other organs; Z96.652 Presence of left artificial knee joint; Z98.890 Other specified postprocedural states; Z87.891 Personal history of nicotine dependence; Z80.9 Family history of malignant neoplasm, unspecified; Z79.84 Long term (current) use of oral hypoglycemic drugs; Z79.1 Long term (current) use of non-steroidal anti-inflammatories (NSAID); Z79.82 Long term (current) use of aspirin; Z79.899 Other long term (current) drug therapy
CPT/HCPCS: 88305; 45385; J2704

== ENCOUNTER → 2021-08-28 | Outpatient (CLI) | payer MEDICARE ==
--- NOTE | 2021-08-28 14:30 | XR ---
EXAMINATION TYPE: XR shoulder complete RT DATE OF EXAM: 08/28/2021 COMPARISON: NONE HISTORY: Pain TECHNIQUE: Three views are submitted. FINDINGS: The osseous structures are intact. There is no acute fracture or dislocation. Arthropathy of the AC joint. Calcification along the humeral head suggestive of calcific tendinosis. IMPRESSION: 1. AC joint arthropathy. 2. Correlate for calcific tendinosis.
== END | disposition home or self-care (01) ==
LOC: RADXRMAIN 13:28
PROVIDERS: ATTEND Physician Assistant
DX: M12.811 Other specific arthropathies, not elsewhere classified, right shoulder (principal)

== ENCOUNTER → 2024-02-01 | Outpatient (CLI) | payer MEDICARE | END | disposition home or self-care (01) | LOC: LABPAT 14:26 | PROVIDERS: ATTEND Orthopaedic Surgery | DX: Z01.812 Encounter for preprocedural laboratory examination (principal) | CPT/HCPCS: 36415; 86850; 86900; 86901; 87070 ==

== ENCOUNTER 2024-02-08 08:31 | Day surgery (SDC) | payer MEDICARE ==
[2024-02-03 14:52] VITALS: BMI 26.3
--- NOTE | 2024-02-07 08:27 | P.HPOR ---
History of Present Illness H&P Date: 02/07/24 Chief Complaint: Right hip pain The patient is a 73-year-old male who presents with right hip pain for the past several years worsening recently. He notes anterior thigh and groin pain worse with weightbearing activities. He notes he's been limping. It is affecting the quality of his life. He notes night symptoms. He tried medications without much relief. Review of Systems As per HPI Past Medical History Past Medical History: Coronary Artery Disease (CAD), Diabetes Mellitus, Hyperlipidemia, Hypertension, Osteoarthritis (OA) Additional Past Medical History / Comment(s): spouse states has "some blockages but not able to have stent". BACK PAIN-DDD History of Any Multi-Drug Resistant Organisms: None Reported Past Surgical History: Appendectomy, Heart Catheterization, Joint Replacement, Orthopedic Surgery Additional Past Surgical History / Comment(s): left total knee replacement, left knee meniscus repair, COLONOSCOPY Past Anesthesia/Blood Transfusion Reactions: No Reported Reaction Smoking Status: Former smoker - Past Family History Mother Family Medical History: Cancer Medications and Allergies Home Medications Medication Instructions Recorded Confirmed Type Atorvastatin [Lipitor] 80 mg PO HS 11/07/14 02/03/24 History Metoprolol Tartrate [Lopressor] 25 mg PO BID 11/07/14 02/03/24 History metFORMIN HCL [Glucophage] 500 mg PO BID 11/07/14 02/03/24 History Cyanocobalamin (Vitamin B-12) 500 mcg PO DAILY 04/18/19 02/03/24 History [Vitamin B-12] Ibuprofen 800 mg PO Q6H PRN 04/18/19 02/03/24 History Iron 18 mg PO BID 04/05/20 02/03/24 History glipiZIDE [Glucotrol] 2.5 mg PO AC-BRKFST 04/05/20 02/03/24 History Aspirin [Adult Low Dose Aspirin EC] 81 mg PO DAILY 11/25/20 02/03/24 History Gabapentin [Neurontin] 300 mg PO BID 02/03/24 02/03/24 History HYDROcodone/APAP 5-325MG [[place] 1 tab PO Q6HR PRN 02/03/24 02/03/24 History 5-325] HYDROcodone/APAP 5-325MG [[place] 1 tab PO TID PRN 02/03/24 02/03/24 History 5-325] Allergies Allergy/AdvReac Type Severity Reaction Status Date / Time No Known Allergies Allergy Verified 02/03/24 14:17 Physical Examination - Hip right Tenderness with palpation: anterior Pain with motion: internal rotation and hip flexion ROM: flexion: 70 degrees ROM: internal rotation: 0 degrees (With pain) ROM: external rotation: 50 degrees Crepitus with motion: Yes Strength: extension: 5/5 Strength: flexion: 5/5 Strength: abduction: 5/5 Tests: impingement tests: positive Results The patient is a well-developed well-nourished male approximately 6 foot tall, 179 pounds of mesomorphic habitus. HEENT exam is nonfocal, neck is supple. He has painful passive motion of the right hip. Clinically he does have some shortening of the right lower extremity compared to the left. His distal neurovascular appears intact in the right lower extremity. - Diagnostic results Hip x-ray: image reviewed (An AP pelvis x-ray shows severe right hip osteoarthrosis with subchondral sclerosis and [id number] changes.) Assessment and Plan Assessment: Right hip severe osteoarthrosis Plan: I talked to the patient at length regarding his condition along with treatment options. At this point he is quite limited because of right hip pain related to his osteoarthrosis despite conservative measures. After a thorough discussion he opts to proceed with surgery. We'll plan to proceed with right total hip arthroplasty utilizing an anterior approach. Risks and benefits were discussed at length in layman's terms. We will institute DVT prophylaxis postoperatively.
[~2024-02-08 08:31] MED LIST changes: +HYDROmorphone 0.5 MG/0.5 ML SYRINGE IVP PRN; -LACTATED RINGERS 1,000 ML IV SCH; +LIDOCAINE 1% (10MG/ML) FOR IV START INTRADERMA PRN; +TRANEXAMIC 1,000 MG/100ML-NACL 1,000 MG in SALINE 1 100ML.BAG IVPB PRN
[2024-02-08] MEDS: IV FLUID CONTINUATION 1,000 ML IV ONE ×2 (09:01→11:59)
[2024-02-08] MEDS: MELOXICAM 7.5 MG TAB PO PRN (09:22)
[2024-02-08] MEDS: ACETAMINOPHEN TAB 500 MG TAB PO PRN (09:22)
[2024-02-08] MEDS: LACTATED RINGERS 1,000 ML IV SCH (09:23)
[2024-02-08] MEDS: ONDANSETRON 4 MG/2 ML VIAL IVP ONE (09:23)
[2024-02-08 09:30] LABS: Glucose,Whole Blood 94 mg/dL (70-110)
[2024-02-08] MEDS: MIDAZOLAM 2 MG/2 ML VIAL IVP ONE (09:45)
--- NOTE | 2024-02-08 09:51 | P.ANPRN ---
Procedure Note - Anesthesia - Nerve Block Performed Right Jose Single Time Out Performed: Yes ([id number]) Date of Procedure: 02/08/24 Procedure Start Time: 09:47 Procedure Stop Time: 09:52 Location of Patient: PreOp Indication: Acute Post-Operative Pain, Requested by Surgeon Sedation Type: Sedate with meaningful contact maintained Preparation: Sterile Prep, Sterile Dressing Position: Supine Catheter: None Needle Types: Pajunk Needle Gauge: 21 Ultrasound used to visualize needle placement: Yes Ultrasound used to observe medication spread: Yes Injectate: 0.5% Ropivacaine (see comment for volume) (20 ml mixed with 4 mg of dexamethasone) Blood Aspirated: No Pain Paresthesia on Injection Noted: No Resistance on Injection: Normal Image Stored and Saved: Yes Events: Uneventful and Well Tolerated
[2024-02-08] MEDS ORDERED: TRANEXAMIC 1,000 MG/100ML-NACL PREMIX BAG ONE (10:49)
[2024-02-08] MEDS ORDERED: PROPOFOL 10 MG/ML 20 ML VIAL IV ONE (10:49)
[2024-02-08] MEDS ORDERED: MIDAZOLAM 2 MG/2 ML VIAL ONE (10:49)
[2024-02-08] MEDS ORDERED: ROPIVACAINE 5 MG/ML 30 ML VIAL ONE (10:49)
[2024-02-08] MEDS ORDERED: LIDOCAINE 1% INJ 10MG/ML (20 ML MDV) ONE (10:49)
[2024-02-08] MEDS: ceFAZolin 3,000 MG in SODIUM CHLORIDE 0.9% IRRIGATIO 3,000 ML IRRIGATION ONE (11:28)
[2024-02-08] MEDS ORDERED: HYDROcodone/APAP 5-325MG 1 EACH TAB PO PRN (12:50)
[2024-02-08] MEDS ORDERED: hydrOXYzine pamoate 25 MG CAP PO PRN (12:50)
[2024-02-08] MEDS ORDERED: NALOXONE 0.4 MG/ML 1 ML VIAL IV PRN (12:50)
[2024-02-08] MEDS ORDERED: MAGNESIUM HYDROXIDE 2,400 MG/30 ML CUP PO PRN (12:50)
[2024-02-08] MEDS ORDERED: HYDROmorphone 0.5 MG/0.5 ML SYRINGE IVP PRN (12:50)
--- NOTE | 2024-02-08 13:10 | P.OP ---
Date of Procedure: 02/08/24 Preoperative Diagnosis: Right hip severe osteoarthrosis Postoperative Diagnosis: Same Procedure(s) Performed: Right total hip arthroplastypress-fitanterior approach Implants: Depuy Corail size 16high offsetcollared press-fit femoral stem, 36mm -2 cobalt chrome femoral head, 56 mm [place] acetabular shell with neutral polyethylene liner. Indications for Procedure: The patient is a 73-year-old male who presents with progressive right hip pain secondary to osteoarthrosis despite conservative measures. A discussion of the risks and benefits of operative intervention versus continued conservative measures was made with the patient. Specific risks of surgery to include infection, neurovascular injury, development of blood clots, leg length discrepancy, fracture, possible component loosening/failure and possible need for subsequent procedures was discussed. Informed consent was obtained. Operative Findings: As below Description of Procedure: The patient was brought to the operating room, and after induction of spinal anesthesia was placed supine on the Tesha table. Positioning was checked with fluoroscopy. The right hip was then prepped and draped in a normal fashion. A 12 cm incision was then made starting 2 fingerbreadths distal and 3 finger breaths posterior to the ASIS in line with the proximal femur. The skin was incised sharply. Subcutaneous tissues were divided sharply. Electrocautery was used for hemostasis. The fascia was split in line with skin incision. The interval between the sartorius and tensor fascia sadie was then bluntly developed. The posterior fascia was opened with electrocautery. The lateral circumflex vessels were identified and cauterized prior to sectioning. A retractor was placed along the superior femoral neck as well as the anterior acetabular rim. A wide capsulotomy was performed. The neck cut was then made at a 45 angle to the shaft approximately 1 1/2 cm above the level of the lesser trochanter. The head was extracted. Attention was then paid towards preparing the acetabular. Anterior and posterior retractors were placed. The remaining capsular labral tissue sharply debrided clearly defining the acetabular margins. I began reaming with a 51 mm reamer taking care to initially medialize then reaming at 45 of abduction and 20 of anteversion. Sequential reaming is performed up to 55 mm. A trial 56 mm acetabular shell was inserted in the same orientation and was fully seated. There was good rim fit and stability. Positioning was checked with fluoroscopy. The final 56 mm acetabular shell was inserted again at 45 of abduction and 20 of anteversion. This was fully seated. There was good rim fit and stability. Again fluoroscopy was used to check the adequacy of placement. A neutral polyethylene liner was gently impacted. Care was taken to avoid any soft tissue interposition. Pulsatile lavage was utilized. Attention was then paid towards preparing the proximal femur. The central region was cleared of soft tissue. A canal finder was used to find the femoral canal. Sequential broaching was performed up to size 16 taking care to lateralize proximally. A calcar mill was used to fashion the medial calcar. There was good rotational stability. A high offset neck along with a 36 mm -2 head was placed. The hip was gently reduced. Fluoroscopy was used to check the adequacy of positioning along with leg lengths. I felt both were good. The hip was gently dislocated. The trial components were removed. The final size 16 collared standard press-fit femoral stem was inserted parallel to the posterior cortex. This was fully seated and there was good rotational stability. A 36 mm -2 head was placed. This was gently impacted. The hip was then gently reduced. Final fluoroscopic view showed adequate placement implant along with hindu of leg length. Stability was checked with 80 of external rotation and 60 of extension of the right hip. The wound was irrigated with sterile lavage. The fascia was closed with running 0 Vicryl suture. There was minimal drainage therefore a deep drain was not placed. The second dose of IV TXA was given. The subcutaneous tissues were reapproximated interrupted 2-0 Vicryl sutures. The skin was reapproximated with 3-0 subcuticular strata fix suture. Skin tape and adhesive was applied. A sterile dressing was applied. The patient was then awoken from sedation and transferred to recovery room in good condition. Blood loss was estimated at 300 mL. No complications were incurred. Sponge and needle counts were correct at the end of the case. Fer BRAND assisted during the major components is case to include exposure, bone resection, implantation, and closure.
[2024-02-08 13:17] LABS: Glucose,Whole Blood 107 mg/dL (70-110)
--- NOTE | 2024-02-08 13:19 | FL ---
EXAMINATION TYPE: FL guidance operating room, XR Hip Limited RT Intraoperative/procedural fluoroscopi c services were provided. Total fluoroscopy time is 53 seconds with a total of 9 submitted images to PACS. Please see the operative/procedural note for further details. DAP: 0.23 122 mGym2
--- NOTE | 2024-02-08 13:55 | XR ---
EXAMINATION TYPE: XR Hip Limited RT DATE OF EXAM: 02/08/2024 1:40 PM CLINICAL INDICATION:Male, 73 years old with history of Status post hip surgery, assess surgical align ment; [facility] COMPARISON: None. TECHNIQUE: XR Hip Limited RT; hip was examined in the frontal projection. FINDINGS: Post arthroplasty changes, hardware is intact, alignment is appropriate. No evidence of fra cture. Postoperative changes of the soft tissues with subcutaneous gas. No evidence of any acute osse ous pathology or joint dislocation. Atherosclerosis of the arterial vasculature. IMPRESSION: Hip arthroplasty with hardware intact and in appropriate alignment. No acute fracture.
[2024-02-08] MEDS: droPERidol 5 MG/2 ML VIAL IVP ONE (14:57)
--- NOTE | 2024-02-08 16:08 | P.CONS ---
History of Present Illness - Reason for Consult Consult date: 02/08/24 - Chief Complaint Hip pain - History of Present Illness This is a 73-year-old white male was admitted to the hospital with right hip pain, he underwent right hip arthroplasty. Currently he is postop, no chest pain no nausea no vomiting no dizziness. Remains afebrile. Minimal right hip pain. No hematuria dysuria hematemesis analgesia. Review of Systems 10 systems reviewed, pertinent positive and negative findings as in HPI. Hip pain, no chest pain or shortness of breath Past Medical History Past Medical History: Coronary Artery Disease (CAD), Diabetes Mellitus, Hyperlipidemia, Hypertension, Osteoarthritis (OA) Additional Past Medical History / Comment(s): spouse states has "some blockages but not able to have stent". BACK PAIN-DDD History of Any Multi-Drug Resistant Organisms: None Reported Past Surgical History: Appendectomy, Heart Catheterization, Joint Replacement, Orthopedic Surgery Additional Past Surgical History / Comment(s): left total knee replacement, left knee meniscus repair, COLONOSCOPY Past Anesthesia/Blood Transfusion Reactions: No Reported Reaction Smoking Status: Former smoker - Past Family History Mother Family Medical History: Cancer Medications and Allergies Home Medications Medication Instructions Recorded Confirmed Type Atorvastatin [Lipitor] 80 mg PO HS 11/07/14 02/08/24 History Metoprolol Tartrate [Lopressor] 25 mg PO BID 11/07/14 02/08/24 History metFORMIN HCL [Glucophage] 500 mg PO BID 11/07/14 02/08/24 History Cyanocobalamin (Vitamin B-12) 500 mcg PO DAILY 04/18/19 02/08/24 History [Vitamin B-12] Ibuprofen 800 mg PO Q6H PRN 04/18/19 02/08/24 History Iron 18 mg PO BID 04/05/20 02/08/24 History glipiZIDE [Glucotrol] 2.5 mg PO AC-BRKFST 04/05/20 02/08/24 History Aspirin [Adult Low Dose Aspirin EC] 81 mg PO DAILY 11/25/20 02/08/24 History Gabapentin [Neurontin] 300 mg PO BID 02/03/24 02/08/24 History HYDROcodone/APAP 5-325MG [[place] 1 tab PO Q6HR PRN 02/03/24 02/08/24 History 5-325] HYDROcodone/APAP 5-325MG [[place] 1 tab PO TID PRN 02/03/24 02/08/24 History 5-325] Allergies Allergy/AdvReac Type Severity Reaction Status Date / Time No Known Allergies Allergy Verified 02/08/24 08:53 Physical Exam Vitals: Vital Signs Temp Pulse Pulse Resp BP Pulse Ox 02/08/24 14:37 54 L 16 133/63 96 02/08/24 14:22 51 L 16 135/62 96 02/08/24 14:07 55 L 16 135/70 98 02/08/24 13:52 55 L 16 131/69 96 02/08/24 13:37 62 16 130/65 98 02/08/24 13:22 56 L 16 121/67 97 02/08/24 13:07 97.6 F 61 16 117/60 96 02/08/24 09:55 59 L 148/64 98 02/08/24 09:35 97.8 F 59 L 16 159/78 99 Intake and Output 02/08/24 02/08/24 02/08/24 06:59 14:59 22:59 Intake Total 1551 Output Total 300 Balance 1251 Intake: IV 1551 Output: Estimated Blood Loss 300 Other: Weight 82.1 kg Constitutional: No acute distress, conversant, pleasant Eyes: Anicteric sclerae, moist conjunctiva, no lid-lag, PERRLA ENMT: NC/AT,Oropharynx clear, no erythema, exudates Neck:Supple, FROM, no masses, or JVD, No carotid bruits; No thyromegaly Lungs: Clear to auscultation, Clear to percussion, Normal respiratory effort, no accessory muscle use Cardiovascular: Heart regular in rate and rhythm, No murmurs, gallops, or rubs no peripheral edema Abdominal: Soft Nontender, non distended, no guarding, no rebound or rigidity, Normoactive bowel sounds No hepatomegaly, No splenomegaly, No palpable mass No abdominal wall hernia noted Skin: Normal temperature, tone, texture, turgor, No induration No subcutaneous nodules, No rash, lesions, No ulcers Extremities:No digital cyanosis No clubbing, Pedal pulses intact and symmetrical Radial pulses intact and symmetrical Normal gait and station, No calf tenderness Psychiatric: Alert and oriented to person, place and time, Appropriate affect Intact judgement Neuro: Muscles Strength 5/5 in all 4 extremities, Sensation to light touch grossly present throughout, Cranial nerves II-XII grossly intact. No focal sensory deficits Assessment and Plan Plan: Assessment and plan: 1. Right hip pain: Status post arthroplasty, supportive care pain control as needed Ortho following. 2. Diabetes type 2 with peripheral neuropathy: Patient is a sliding scale. Continue gabapentin 3. Essential hypertension: Continue outpatient medications, on metoprolol 4. Hyperlipidemia: Continue statin Disposition: Pending clinical progression.
[2024-02-08 16:26] LABS: Glucose,Whole Blood 165 mg/dL (70-110)
[2024-02-08] MEDS: GABAPENTIN 300 MG CAP PO SCH (20:36)
[2024-02-08] MEDS: SENNOSIDES-DOCUSATE SODIUM 1 EACH TAB PO SCH (20:36)
[2024-02-08] MEDS: HYDROcodone/APAP 7.5-325MG 1 EACH TAB PO PRN (20:36)
[2024-02-08 21:56] LABS: Glucose,Whole Blood 220 mg/dL (70-110)
[2024-02-09] MEDS: HYDROmorphone 0.5 MG/0.5 ML SYRINGE IVP PRN (01:05)
[2024-02-09 06:24] LABS: Glucose,Whole Blood 222 mg/dL (70-110)
[2024-02-09 08:00] VITALS: BP 145/81; PULSE 76; RESP 15; TEMP 97.9
[2024-02-09] MEDS: RIVAROXABAN 10 MG TAB PO SCH (08:10)
[2024-02-09 08:40] LABS: Basophils # (A) 0.01 X 10*3/uL (0.00-0.10); Basophils % (A) 0.1 %; Eosinophils # (A) 0 X 10*3/uL (0.04-0.35); Eosinophils % (A) 0 %; HGB 10.4 g/dL (13.0-17.0); Lymphocytes # (A) 0.83 X 10*3/uL (0.90-5.00); Lymphocytes % (A) 7.9 %; MCH 31.2 pg (27.0-32.0); MCHC 33.5 g/dL (32.0-37.0); MCV 93.1 FL (80.0-97.0); Mean Platelet Volume 11.7 FL (9.5-12.2); Monocytes # (A) 0.93 X 10*3/uL (0.20-1.00); Monocytes % (A) 8.8 %; NRBC Per 100 WBC 0 X 10*3/uL (0.00-0.01); Neutrophils # (A) 8.72 X 10*3/uL (1.80-7.70); Neutrophils % (A) 82.8 %; Platelet Count 166 X 10*3/uL (140-440); RBC 3.33 X 10*6/uL (4.40-5.60); RDW 12.6 % (11.5-14.5); WBC 10.53 X 10*3/uL (4.50-10.00)
--- NOTE | 2024-02-09 09:59 | P.DS ---
Providers Date of admission: 02/08/2024 Expected date of discharge: 02/09/24 Attending physician: Toribio Mcdonald Consults: 02/08/24 12:50 Consult Physician Routine Consulting Provider: Nixon Murphy Consult Reason/Comments: medical management s/p direct anterior right total hip arthroplasty Do you want consulting provider notified?: Yes Primary care physician: Stated None Hospital Course: Date of admission: 02/08/2024 Date of discharge: 02/09/2024 Admission diagnosis: Right hip osteoarthritis Discharge diagnosis: Same Attending physician: Dr. Mcdonald Surgical procedures: Direct anterior right total hip arthroplasty Brief history: Patient is a 73-year-old male with a history of progressive primary right hip osteoarthritis. At this point patient has failed conservative treatment measures and has opted to proceed with a elective direct anterior right total hip arthroplasty. Hospital course: Details of patient's surgery can be found in operative report. Patient tolerated the procedure well and was subsequently transported to orthopedic floor. Patient's orthopeidc and medical care was provided daily. Patient had daily laboratory tests performed for evaluation of overall blood counts. Patient had daily physical therapy to include strengthening range of motion as well as education with walker ambulation. Patient was treated with Xarelto for their postoperative DVT prophylaxis during their inpatient stay. Patient was noted to have a relatively uneventful postoperative course. Patient reported satisfactory pain control with oral pain medications by postoperative day 1. Patient showed satisfactory progress with physical therapy. Patient moved steadily through the program and had no difficulty meeting the goals by postoperative day 1. Given patient's otherwise satisfactory course and having met physical therapy goals, plan is to discharge patient home on postoperative day 1. Discharge condition/disposition: Patient will be discharged home in stable condition. Discharge medications: Instructions are given on resumption of patient's normal daily medications per primary care recommendation, in addition patient will be prescribed [place]; senna; Eliquis 2.5 mg twice daily x 2 weeks. Discharge instructions: 1. Wound care and infection precautions, keep incision dry and covered while showering, no lotions, creams, moisturizers. No soaking, tubs, pools, hottubs. Do not scrub over the incision. 2. Weight-bear as tolerated with walker / cane until follow-up. 3. Ice and elevate when necessary. Do not exceed 20 minutes per hour with ice pack. 4. Utilize compression sleeve until seen at first follow up appointment. 5. Visiting nursing care. 6. Home physical therapy. 7. Pain meds and anticoagulants per prescription. 8. Pain medication has potential to cause constipation. Increase oral fluid and fiber intake. Contact primary care provider if you have not had a bowel movement within 48 hours after discharge 9. No anti-inflammatory medication until discussed at first post operative visit, this including Motrin, Aleve, Mobic, Diclofenac. 10. Follow up in office at 2 weeks postop with Chris Jenkins PA-C / Fer Tirado PA-C 11. Follow up with your primary care doctor 7-10 days after discharge. 12. Contact [facility] with any questions, . Assessment: Right hip osteoarthritis Procedures: Direct anterior right total hip arthroplasty Patient Condition at Discharge: Good Plan - Discharge Summary Discharge Rx Participant: No New Discharge Prescriptions: New Sennosides/Docusate Sodium [Senna Plus 8.6-50 mg Softgel] 1 each PO DAILY #20 capsule Apixaban [Eliquis] 2.5 mg PO BID #60 tab HYDROcodone/APAP 7.5-325MG [[place] 7.5-325] 1 - 2 tab PO Q6HR PRN #32 tab PRN Reason: Pain No Action Metoprolol Tartrate [Lopressor] 25 mg PO BID Atorvastatin [Lipitor] 80 mg PO HS metFORMIN HCL [Glucophage] 500 mg PO BID Cyanocobalamin (Vitamin B-12) [Vitamin B-12] 500 mcg PO DAILY Ibuprofen 800 mg PO Q6H PRN PRN Reason: Pain glipiZIDE [Glucotrol] 2.5 mg PO AC-BRKFST Iron 18 mg PO BID Aspirin [Adult Low Dose Aspirin EC] 81 mg PO DAILY HYDROcodone/APAP 5-325MG [[place] 5-325] 1 tab PO Q6HR PRN PRN Reason: Pain HYDROcodone/APAP 5-325MG [[place] 5-325] 1 tab PO TID PRN PRN Reason: Pain Gabapentin [Neurontin] 300 mg PO BID Discharge Medication List Atorvastatin [Lipitor] 80 mg PO HS 11/07/14 [History] Metoprolol Tartrate [Lopressor] 25 mg PO BID 11/07/14 [History] metFORMIN HCL [Glucophage] 500 mg PO BID 11/07/14 [History] Cyanocobalamin (Vitamin B-12) [Vitamin B-12] 500 mcg PO DAILY 04/18/19 [History] Ibuprofen 800 mg PO Q6H PRN 04/18/19 [History] Iron 18 mg PO BID 04/05/20 [History] glipiZIDE [Glucotrol] 2.5 mg PO AC-BRKFST 04/05/20 [History] Aspirin [Adult Low Dose Aspirin EC] 81 mg PO DAILY 11/25/20 [History] Gabapentin [Neurontin] 300 mg PO BID 02/03/24 [History] HYDROcodone/APAP 5-325MG [[place] 5-325] 1 tab PO Q6HR PRN 02/03/24 [History] HYDROcodone/APAP 5-325MG [[place] 5-325] 1 tab PO TID PRN 02/03/24 [History] Apixaban [Eliquis] 2.5 mg PO BID #60 tab 02/09/24 [Rx] HYDROcodone/APAP 7.5-325MG [[place] 7.5-325] 1 - 2 tab PO Q6HR PRN #32 tab 4 [Rx] Sennosides/Docusate Sodium [Senna Plus 8.6-50 mg Softgel] 1 each PO DAILY #20 capsule 02/09/24 [Rx] Follow up Appointment(s)/Referral(s): Fer Tirado PAC [[facility]] - 02/21/24 10:00 am Patient Instructions/Handouts: Anterior Hip Replacement (DC), Anterior Hip Replacement (GEN) Activity/Diet/Wound Care/Special Instructions: Orthopedic Discharge Instructions: 1. Wound care and infection precautions, keep incision dry and covered while showering, no lotions, creams, moisturizers. No soaking, pools, hot tubs. Do not scrub over incision. 2. Weight-bear as tolerated with walker / cane until follow-up. 3. Ice and elevate when necessary. Do not exceed 20 minutes per hour with ice pack. 4. Utilize compression sleeve until seen at first follow up appointment. 5. Pain meds and anticoagulants per prescription. 6. Pain medication has potential to cause constipation. Increase oral fluid and fiber intake. Contact primary care provider if you have not had a bowel movement within 48 hours after discharge. 7. No anti-inflammatory medication until discussed at first post operative visit, this including Motrin, Aleve, Mobic, Diclofenac. 8. Follow up in office at 2 weeks postop with Chris Jenkins PA-C / Fer Tirado PA-C 9. Follow up with your primary care doctor 7-10 days after discharge. 10. Contact [facility] with any questions, . Keep incision clean, dry, intact. While showering, cover fusion tape with Saran wrap. Keep fusion tape on until follow-up appointment in office in 2 weeks Discharge Disposition: HOME WITH HOME HEALTH SERVICES
--- NOTE | 2024-02-09 10:22 | P.PN ---
Subjective Progress Note Date: 02/09/24 Feels better, no chest pain abdominal pain no nausea no vomiting no dizziness. Ambulating. Objective - Vital Signs Vital signs: Vital Signs Temp 97.9 F 02/09/24 07:33 Pulse 76 02/09/24 07:33 Resp 15 02/09/24 07:33 BP 145/81 02/09/24 07:33 Pulse Ox 96 02/09/24 07:33 FiO2 Intake & Output 02/08/24 02/09/24 02/09/24 18:59 06:59 18:59 Intake Total 1821 Output Total 1300 Balance 521 Weight 82.1 kg Intake: IV 1551 Oral 270 Output: Urine 1000 Estimated Blood Loss 300 Other: Voiding Method Toilet Urinal # Voids 8 - Exam Constitutional: No acute distress, conversant, pleasant Eyes: Anicteric sclerae, moist conjunctiva, no lid-lag, PERRLA ENMT: NC/AT,Oropharynx clear, no erythema, exudates Neck:Supple, FROM, no masses, or JVD, No carotid bruits; No thyromegaly Lungs: Clear to auscultation, Clear to percussion, Normal respiratory effort, no accessory muscle use Cardiovascular: Heart regular in rate and rhythm, No murmurs, gallops, or rubs no peripheral edema Abdominal: Soft Nontender, non distended, no guarding, no rebound or rigidity, Normoactive bowel sounds No hepatomegaly, No splenomegaly, No palpable mass No abdominal wall hernia noted Skin: Normal temperature, tone, texture, turgor, No induration No subcutaneous nodules, No rash, lesions, No ulcers Extremities:No digital cyanosis No clubbing, Pedal pulses intact and symmetrical Radial pulses intact and symmetrical Normal gait and station, No calf tenderness Psychiatric: Alert and oriented to person, place and time, Appropriate affect Intact judgement Neuro: Muscles Strength 5/5 in all 4 extremities, Sensation to light touch grossly present throughout, Cranial nerves II-XII grossly intact. No focal sens ory deficits - Labs CBC & Chem 7: 02/09/24 04:38 Labs: Abnormal Lab Results - Last 24 Hours (Table) 02/08/24 02/08/24 02/09/24 Range/Units 16:24 21:54 04:38 WBC 10.53 H (4.50-10.00) X 10*3/uL RBC 3.33 L (4.40-5.60) X 10*6/uL Hgb 10.4 L (13.0-17.0) g/dL Hct 31.0 L (39.6-50.0) % Neutrophils # 8.72 H (1.80-7.70) X 10*3/uL Lymphocytes # 0.83 L (0.90-5.00) X 10*3/uL Eosinophils # 0 L (0.04-0.35) X 10*3/uL POC Glucose (mg/dL) 165 H 220 H (70-110) mg/dL 02/09/24 Range/Units 06:23 WBC (4.50-10.00) X 10*3/uL RBC (4.40-5.60) X 10*6/uL Hgb (13.0-17.0) g/dL Hct (39.6-50.0) % Neutrophils # (1.80-7.70) X 10*3/uL Lymphocytes # (0.90-5.00) X 10*3/uL Eosinophils # (0.04-0.35) X 10*3/uL POC Glucose (mg/dL) 222 H (70-110) mg/dL Assessment and Plan Plan: Assessment and plan: 1. Right hip pain: Status post arthroplasty, supportive care pain control as needed Ortho following. 2. Diabetes type 2 with peripheral neuropathy: Patient is a sliding scale. Continue gabapentin 3. Essential hypertension: Continue outpatient medications, on metoprolol 4. Hyperlipidemia: Continue statin Disposition: Home later today.
[2024-02-09 11:22] LABS: Glucose,Whole Blood 266 mg/dL (70-110)
--- NOTE | 2024-02-09 11:23 | P.PN ---
Subjective Progress Note Date: 02/09/24 Principal diagnosis: Right hip osteoarthritis Patient was seen at bedside this morning lying Psorcon position with dressing present on the right hip. Patient says he has been up walking a little bit since surgery yesterday. Patient says he does have a walker for home. Patient says he has urinated several times since surgery yesterday without issue. Patient says he is looking forward to working with therapy later this morning. Patient denies any other issues at this time. Patient says pain is well- controlled with medication. Objective - Vital Signs Vital signs: Vital Signs Temp 97.9 F 02/09/24 07:33 Pulse 76 02/09/24 07:33 Resp 15 02/09/24 07:33 BP 145/81 02/09/24 07:33 Pulse Ox 96 02/09/24 07:33 FiO2 Intake & Output 02/08/24 02/09/24 02/09/24 18:59 06:59 18:59 Intake Total 1821 Output Total 1300 Balance 521 Weight 82.1 kg Intake: IV 1551 Oral 270 Output: Urine 1000 Estimated Blood Loss 300 Other: Voiding Method Toilet Urinal # Voids 8 - Exam Right hip: Incision is clean, dry, and intact. The exofin fusion tape is in good condition. There is minimal soft tissue swelling and ecchymosis surrounding the medial and lateral aspects of the incision. Calf is soft, no tenderness with palpation. Plantar flexion, dorsiflexion, EHL, FHL are intact. Sensory exam to light touch throughout the extremity is intact, dorsal pedis pulses 2+. - Labs CBC & Chem 7: 02/09/24 04:38 Labs: Abnormal Lab Results - Last 24 Hours (Table) 02/08/24 02/08/24 02/09/24 Range/Units 16:24 21:54 04:38 WBC 10.53 H (4.50-10.00) X 10*3/uL RBC 3.33 L (4.40-5.60) X 10*6/uL Hgb 10.4 L (13.0-17.0) g/dL Hct 31.0 L (39.6-50.0) % Neutrophils # 8.72 H (1.80-7.70) X 10*3/uL Lymphocytes # 0.83 L (0.90-5.00) X 10*3/uL Eosinophils # 0 L (0.04-0.35) X 10*3/uL POC Glucose (mg/dL) 165 H 220 H (70-110) mg/dL 02/09/24 Range/Units 06:23 WBC (4.50-10.00) X 10*3/uL RBC (4.40-5.60) X 10*6/uL Hgb (13.0-17.0) g/dL Hct (39.6-50.0) % Neutrophils # (1.80-7.70) X 10*3/uL Lymphocytes # (0.90-5.00) X 10*3/uL Eosinophils # (0.04-0.35) X 10*3/uL POC Glucose (mg/dL) 222 H (70-110) mg/dL Assessment and Plan Assessment: 1. Right hip osteoarthritis -Postop day 1 status post direct anterior right total hip arthroplasty Plan: 1. Right hip osteoarthritis -direct anterior right total hip arthroplasty form yesterday, 02/08/2024. Patient stable at bedside this morning. Pending doing the stairs with PT/OT, plan for discharge home today with health services. 2. Appreciate medical management 3. Pain management -[place] 4. DVT prophylaxis -Xarelto on hospital. Going home with Eliquis 2.5 mg twice daily x 2 weeks 5. GI prophylaxis -senna 6. PT/OT -weightbearing as tolerated with walker 7. Encourage incentive spirometer use 8. Discharge planning -home today with health services Time with Patient: Less than 30
== END 2024-02-09 15:20 | disposition home health service (06) ==
LOC: OR 08:31 → 4SSUR 14:45 → OR 02-09 15:20
PROVIDERS: ATTEND Orthopaedic Surgery
DX: M16.11 Unilateral primary osteoarthritis, right hip (principal); G89.18 Other acute postprocedural pain; I10 Essential (primary) hypertension; E11.69 Type 2 diabetes mellitus with other specified complication; E78.5 Hyperlipidemia, unspecified; I25.10 Atherosclerotic heart disease of native coronary artery without angina pectoris; E11.42 Type 2 diabetes mellitus with diabetic polyneuropathy; Z87.891 Personal history of nicotine dependence; Z79.84 Long term (current) use of oral hypoglycemic drugs; Z79.82 Long term (current) use of aspirin; Z79.899 Other long term (current) drug therapy
CPT/HCPCS: 97162; 64447; 85025; 73501; 27130; C1776; J2250; J0690 ×3; J2405; J1170

== ENCOUNTER → 2024-04-03 | Outpatient (CLI) | payer MEDICARE ==
[2024-04-03 17:25] LABS: Basophils # (A) 0.06 X 10*3/uL (0.00-0.10); Eosinophils # (A) 0.27 X 10*3/uL (0.04-0.35); Eosinophils % (A) 4.5 %; HCT 36.7 % (39.6-50.0); HGB 11.6 g/dL (13.0-17.0); Lymphocytes # (A) 1.76 X 10*3/uL (0.90-5.00); Lymphocytes % (A) 29.6 %; MCHC 31.6 g/dL (32.0-37.0); MCV 98.1 FL (80.0-97.0); Mean Platelet Volume 11.7 FL (9.5-12.2); Monocytes # (A) 0.56 X 10*3/uL (0.20-1.00); Monocytes % (A) 9.4 %; NRBC Per 100 WBC 0 X 10*3/uL (0.00-0.01); Neutrophils # (A) 3.27 X 10*3/uL (1.80-7.70); Neutrophils % (A) 55.2 %; Platelet Count 191 X 10*3/uL (140-440); RBC 3.74 X 10*6/uL (4.40-5.60); RDW 12.9 % (11.5-14.5); WBC 5.94 X 10*3/uL (4.50-10.00)
[2024-04-03 17:28] LABS: BUN/Creat Ratio 19.78 Ratio (12.00-20.00); Blood Urea Nitrogen 17.8 mg/dL (9.0-27.0); Carbon Dioxide 24.7 mmol/L (21.6-31.8); Chloride 107 mmol/L (96-109); Glucose 73 mg/dL (70-110); Potassium 4.4 mmol/L (3.5-5.5); Sodium 142 mmol/L (135-145)
[2024-04-03 17:33] LABS: INR 1.11 sec (0.93-1.11); Prothrombin Time 11.9 sec (9.9-11.9)
== END | disposition home or self-care (01) ==
LOC: LABPAT 10:43
PROVIDERS: ATTEND Orthopaedic Surgery
DX: Z01.812 Encounter for preprocedural laboratory examination (principal); M17.11 Unilateral primary osteoarthritis, right knee; Z22.322 Carrier or suspected carrier of Methicillin resistant Staphylococcus aureus
CPT/HCPCS: 80048; 85025; 85610; 87070

== ENCOUNTER 2024-05-02 05:46 | Day surgery (SDC) | payer MEDICARE ==
--- NOTE | 2024-05-01 12:39 | P.HPOR ---
History of Present Illness H&P Date: 05/01/24 Chief Complaint: Right knee pain The patient is a 73-year-old retired male who presents with progressive right knee pain for the past 6 months. He has diffuse pain and swelling along with stiffness. He is having nighttime symptoms. He notes the knee significantly limits his function and activities. He is tried medications along with injections in the past. Review of Systems As per HPI Past Medical History Past Medical History: Coronary Artery Disease (CAD), Diabetes Mellitus, Hyperlipidemia, Hypertension, Osteoarthritis (OA) Additional Past Medical History / Comment(s): spouse states has "some blockages but not able to have stent" History of Any Multi-Drug Resistant Organisms: None Reported Past Surgical History: Appendectomy, Heart Catheterization, Orthopedic Surgery Additional Past Surgical History / Comment(s): left total knee replacement, left knee meniscus repair, COLONOSCOPY, right total hip arthroplasty Past Anesthesia/Blood Transfusion Reactions: No Reported Reaction Past Psychological History: No Psychological Hx Reported Smoking Status: Former smoker Past Alcohol Use History: Occasional Additional Past Alcohol Use History / Comment(s): quit smoking 2014 yrs ago, smoked 40 yrs. 1ppd Past Drug Use History: None Reported - Past Family History Mother Family Medical History: Cancer Medications and Allergies Home Medications Medication Instructions Recorded Confirmed Type Atorvastatin [Lipitor] 80 mg PO HS 11/07/14 02/08/24 History Metoprolol Tartrate [Lopressor] 25 mg PO BID 11/07/14 02/08/24 History metFORMIN HCL [Glucophage] 500 mg PO BID 11/07/14 02/08/24 History Cyanocobalamin (Vitamin B-12) 500 mcg PO DAILY 04/18/19 02/08/24 History [Vitamin B-12] Ibuprofen 800 mg PO Q6H PRN 04/18/19 02/08/24 History Iron 18 mg PO BID 04/05/20 02/08/24 History glipiZIDE [Glucotrol] 2.5 mg PO AC-BRKFST 04/05/20 02/08/24 History Aspirin [Adult Low Dose Aspirin EC] 81 mg PO DAILY 11/25/20 02/08/24 History Gabapentin [Neurontin] 300 mg PO BID 02/03/24 02/08/24 History HYDROcodone/APAP 5-325MG [[place] 1 tab PO Q6HR PRN 02/03/24 02/08/24 History 5-325] HYDROcodone/APAP 5-325MG [[place] 1 tab PO TID PRN 02/03/24 02/08/24 History 5-325] Apixaban [Eliquis] 2.5 mg PO BID #60 tab 02/09/24 Rx HYDROcodone/APAP 7.5-325MG [[place] 1 - 2 tab PO Q6HR PRN #32 tab 02/09/24 Rx 7.5-325] Sennosides/Docusate Sodium [[place] 1 each PO DAILY #20 capsule 02/09/24 Rx Plus 8.6-50 mg Softgel] Allergies Allergy/AdvReac Type Severity Reaction Status Date / Time No Known Allergies Allergy Verified 02/08/24 08:53 Physical Examination - Knee right Appearance: effusion Effusion grade: grade 2 Varus alignment in stance: 5 degrees Tenderness with palpation: anterior, medial Pain: throughout ROM Gait: limping ROM: extension: -15 degrees ROM: flexion: 110 degrees Crepitus with motion: Yes Strength: extension: 5/5 Strength: flexion: 5/5 Meniscal tests: medial meniscal tests: positive, medial joint line pain: positive, lateral joint line pain: positive Results The patient is a well-developed well-nourished male approximately 6 foot fall, 182 pounds of mesomorphic habitus. HEENT exam is nonfocal, neck is supple. He has limited painful active motion of the right knee. He has a moderate effusion. Collaterals are stable, Evonne's negative, April's is equivocal. He has an antalgic gait pattern. His distal neurovascular appears intact in the right lower extremity. - Diagnostic results Knee x-ray: image reviewed (X-rays of the right knee obtained the office show severe patellofemoral compartment osteoarthrosis along with chondrocalcinosis of the medial and lateral compartments.) Assessment and Plan Assessment: Right knee severe patellofemoral compartment osteoarthrosis/c hondrocalcinosis/pseudogout Plan: I talked to the patient at length regarding his condition along with treatment options. At this point he is quite symptomatic having pain and mechanical symptoms related to his osteoarthrosis despite previous conservative measures. After a thorough discussion he opts to proceed with surgery. We will plan to proceed with right total knee arthroplasty. Risks and benefits were discussed at length in layman's terms.
[~2024-05-02 05:46] MED LIST changes: +ACETAMINOPHEN TAB 500 MG TAB PO PRN; -HYDROmorphone 0.5 MG/0.5 ML SYRINGE IVP PRN; -LIDOCAINE 1% (10MG/ML) FOR IV START INTRADERMA PRN
[2024-05-02] MEDS ORDERED: LIDOCAINE 1% (10MG/ML) FOR IV START INTRADERMA PRN (06:14)
[2024-05-02 06:47] LABS: Glucose,Whole Blood 89 mg/dL (70-110)
[2024-05-02] MEDS: IV FLUID CONTINUATION 1,000 ML IV ONE ×2 (07:00→11:09)
[2024-05-02] MEDS ORDERED: HYDROmorphone 0.5 MG/0.5 ML SYRINGE IVP PRN ×2 (07:00→09:12)
[2024-05-02] MEDS: ONDANSETRON 4 MG/2 ML VIAL IVP ONE (07:00)
[2024-05-02] MEDS: LACTATED RINGERS 1,000 ML IV SCH (07:00)
[2024-05-02] MEDS: MELOXICAM 7.5 MG TAB PO PRN (07:00)
[2024-05-02] MEDS: MIDAZOLAM 2 MG/2 ML VIAL IV PRN (07:08)
[2024-05-02] MEDS: fentaNYL (PF) 50 MCG/ML 2 ML AMP IVP PRN (07:08)
[2024-05-02] MEDS ORDERED: ROPIVACAINE 5 MG/ML 30 ML VIAL ONE (07:30)
[2024-05-02] MEDS ORDERED: PROPOFOL 10 MG/ML 20 ML VIAL IV ONE (07:30)
[2024-05-02] MEDS ORDERED: fentaNYL (PF) 50 MCG/ML 2 ML AMP ONE (07:30)
[2024-05-02] MEDS ORDERED: LIDOCAINE 1% INJ 10MG/ML (20 ML MDV) ONE (07:30)
[2024-05-02] MEDS ORDERED: MIDAZOLAM 2 MG/2 ML VIAL ONE (07:30)
[2024-05-02] MEDS ORDERED: TRANEXAMIC 1,000 MG/100ML-NACL PREMIX BAG ONE (07:30)
[2024-05-02] MEDS: DEXAMETHASONE SOD PHOSPHATE 4 MG/ML 1 ML VIAL IV ONE (07:34)
[2024-05-02] MEDS: ceFAZolin 1,000 MG in SODIUM CHLORIDE 0.9% 1,000 ML IRRIGATION ONE (08:06)
--- NOTE | 2024-05-02 08:22 | P.ANPRN ---
Procedure Note - Anesthesia - Nerve Block Performed Right Adductor Canal Infusion Time Out Performed: Yes Date of Procedure: 05/02/24 Procedure Start Time: 07:07 Procedure Stop Time: 07:16 Location of Patient: PreOp Indication: Acute Post-Operative Pain, Requested by Surgeon Sedation Type: Sedate with meaningful contact maintained Preparation: Sterile Prep, Sterile Dressing Position: Supine Catheter: Indwelling Needle Types: [place]ajunk Needle Gauge: 18 Ultrasound used to visualize needle placement: Yes Ultrasound used to observe medication spread: Yes Injectate: 0.5% Ropivacaine (see comment for volume) (15 ml + 10 ml NS) Blood Aspirated: No Pain Paresthesia on Injection Noted: No Resistance on Injection: Normal Image Stored and Saved: Yes Events: Uneventful and Well Tolerated
--- NOTE | 2024-05-02 08:23 | P.ANPRN ---
Procedure Note - Anesthesia - Nerve Block Performed Right iPack Single Time Out Performed: Yes Date of Procedure: 05/02/24 Procedure Start Time: : Procedure Stop Time: : Location of Patient: PreOp Indication: Acute Post-Operative Pain, Requested by Surgeon Sedation Type: Sedate with meaningful contact maintained Preparation: Sterile Prep Position: Left Lateral Needle Types: [place] Needle Gauge: 21 Ultrasound used to visualize needle placement: Yes Ultrasound used to observe medication spread: Yes Injectate: 0.5% Ropivacaine (see comment for volume) (15 ml + 10 ml NS) Blood Aspirated: No Pain Paresthesia on Injection Noted: No Resistance on Injection: Normal Image Stored and Saved: Yes Events: Uneventful and Well Tolerated
[2024-05-02] MEDS ORDERED: ONDANSETRON 4 MG/2 ML VIAL IVP PRN (09:12)
[2024-05-02] MEDS ORDERED: hydrOXYzine pamoate 25 MG CAP PO PRN (09:12)
[2024-05-02] MEDS ORDERED: NALOXONE 0.4 MG/ML 1 ML VIAL IV PRN (09:12)
[2024-05-02] MEDS ORDERED: HYDROcodone/APAP 5-325MG 1 EACH TAB PO PRN (09:12)
[2024-05-02] MEDS ORDERED: MAGNESIUM HYDROXIDE 2,400 MG/30 ML CUP PO PRN (09:12)
--- NOTE | 2024-05-02 09:37 | P.OP ---
Date of Procedure: 05/02/24 Preoperative Diagnosis: Right knee severe tricompartmental osteoarthrosis/chondrocalcinosis Postoperative Diagnosis: Same Procedure(s) Performed: Right total knee arthroplastycementedcruciate retaining Implants: [employer] journey 2 size 7 cemented femoral component, size 6 cemented tibial component, 10 mm articular surface, 35 mm cemented patellar component. This is a cruciate retaining implant. Anesthesia: regional, spinal Surgeon: Toribio Mcdonald Bending Frame Operator #1: Fer Tirado Estimated Blood Loss (ml): 50 Pathology: none sent Condition: stable Disposition: PACU Indications for Procedure: The patient is a 73-year-old male who presents with progressive right knee pain secondary to osteoarthrosis along with chondrocalcinosis despite conservative measures. A discussion of the risks and benefits of operative intervention versus continued conservative measures was made with the patient. He opted to proceed with surgery. Operative risks include infection, neurovascular injury, development of blood clots, fracture, possible component loosening/failure and possible need for subsequent procedures was discussed. Informed consent was obtained. Operative Findings: As below Description of Procedure: The patient was brought to the operating room, and after induction of spinal anesthesia the right lower extremity was prepped and draped in a normal fashion. The tourniquet was inflated to 270 mm marker. A longitudinal incision extending 3 finger breaths above the superior pole of patella extending to the medial aspect the tibial tubercle was then made. The skin and subcutaneous tissues were divided sharply. Electrocautery was used for hemostasis. A medial parapatellar arthrotomy was performed. The medial soft tissues to include the superficial and deep portions of the medial collateral ligament were elevated subperiosteally. The patella was everted. A portion of the retropatellar fat pad was excised sharply. The anterior cruciate ligament was sacrificed. Blunt retractors were placed. A starting hole was made in the distal femur 1 cm anterior to the posterior cruciate ligament origin. An intramedullary femoral guide was then inserted planning on 5 valgus distal cut with 9 mm distal resection. The cutting block was pinned in place. The distal cut was then made. The posterior referencing sizing guide was utilized. I felt size 7 was most appropriate. 3 of external rotation was built into the system and verified off the trans-epicondylar axis and the posterior condyles. The cutting block was pinned in place. The anterior, posterior, and chamfer cuts then made. Bone fragments were removed. The intercondylar guide was placed and the notch cut was made with a sagittal saw. The bone block was removed in one fragment. The trial component was then placed. There is good anterior to posterior and medial to lateral fit. The distal peg holes were drilled. The trial component was removed. Attention was then paid towards preparing the proximal tibia. An extra medullary guide was utilized in line with the tibial shaft and second metatarsal distally. I planned on 6 mm resection from the medial compartment. The cutting block was pinned in place. The proximal tibial cut was then made. The bone was removed in one fragment. The remnants of the medial and lateral menisci were excised at the capsular junction with electrocautery. The tibia sized most appropriately at size 6. The trial femoral and tibial components were placed along with a 10 mm articular surface. I was able to obtain full flexion and extension with internal and external rotation. After several flexion and extension cycles, the tibial rotation was marked with electrocautery line with the medial one third of the tibial tubercle. Attention was then paid towards preparing the patella. A patella reamer was utilized taking stem to 14 mm of bone stock. A good flush cut was made. The patella sized most appropriately 35 mm. The peg holes were drilled. The trial components placed. I had good patellofemoral tracking with no hands technique. The trial components were then removed. The tibia was prepared in the appropriate rotation with appropriate drill and keel punch. The posterior osteophytes were removed with a curved osteotome. The flexion and extension gaps were checked and felt to be symmetric at 10 mm. A trial components were then removed. The bony surfaces were prepared with pulsatile lavage and dried. The tibial component was then cemented place was fully seated. Excess cement was removed. The femoral component cemented place and was fully seated. Excess cement was removed. The trial 10 mm articular surface was placed and the knee was put in full extension. The patella component was cemented place. After the cement had sufficiently hardened, the knee was again taken through a range of motion. Again I was able to obtain full flexion and extension with varus and valgus stress. The trial 10 mm articular surface was removed and the final one inserted. This was fully seated. Care was taken to avoid any soft tissue interposition. Pulsatile lavage was again utilized. The medial parapatellar arthrotomy was closed with #2 Ethibond suture. The tourniquet was deflated with approximately 60 minutes total tourniquet time. Final hemostasis was obtained with the cautery. There was minimal bleeding therefore a deep drain was not placed. The subcutaneous tissues were reapproximated with interrupted 2-0 Vicryl sutures. The skin was reapproximated with 3-0 subcuticular strata fix suture. Skin tape and adhesive was applied. A sterile dressing was applied. The patient was awoken from sedation and transferred to recovery room in good condition. Blood loss was estimated at 50 mL. No complications were incurred. Sponge and needle counts were correct at the end of the case. Fer BRAND assisted during the major components of this case to include exposure, bone resection, implantation, and closure.
[2024-05-02] MEDS: ROPIVACAINE 1,100 MG, SODIUM CHLORIDE 0.9% 500 ML 330 ML, EMPTY PAIN BALL 1 EACH MISCELLANE PRN (09:43)
--- NOTE | 2024-05-02 10:19 | XR ---
EXAMINATION TYPE: XR knee limited RT DATE OF EXAM: 05/02/2024 9:56 AM CLINICAL INDICATION: Male, 73 years old with history of Evaluation for Postop abnormality and alignme nt; [facility] COMPARISON: None. TECHNIQUE: XR knee limited RT; examined in Frontal, lateral and oblique projections. FINDINGS: Status post total knee arthroplasty changes with hardware in appropriate alignment and in tact. No evidence of fracture. This course of the arterial vasculature. IMPRESSION: Status post total knee arthroplasty changes with hardware intact and appropriate alignment. No fractu res identified.
[2024-05-02 16:52] LABS: Glucose,Whole Blood 307 mg/dL (70-110)
[2024-05-02] MEDS: HYDROcodone/APAP 7.5-325MG 1 EACH TAB PO PRN (17:49)
--- NOTE | 2024-05-02 20:23 | P.CONS ---
History of Present Illness - Reason for Consult Consult date: 05/02/24 Medical management Requesting physician: Toribio Mcdonald - Chief Complaint Right knee surgery - History of Present Illness This is a pleasant 73-year-old patient follows Dr. Kike Mcgee. Chronic stable medical conditions includes CAD with blockages but not stents. Manage medically. Diabetes, hypertension, hyperlipidemia. Hard of hearing. BPH with symptoms. Patient has undergone right total knee arthroplasty. Postprocedure sitting at the edge of the bed. Some pain present. No nausea vomiting. No cardiac symptoms. Accompanied by his . Normally has a bowel movement once every 7 days. Review of systems: GEN.: None EYES: None HEENT: Hard of hearing NECK: None RESPIRATORY: None CARDIOVASCULAR: None GASTROINTESTINAL: BM, only once a week GENITOURINARY: BPH symptoms MUSCULOSKELETAL: Joint pains LYMPHATICS: None HEMATOLOGICAL: None PSYCHIATRY: None NEUROLOGICAL: None Social history: Patient is average risk pack a day for about 40 years stopped in 2013. . Used to work for [employer]. Retired. Drinks about 2-3 beers a week Physical examination: VITAL SIGNS: 97.7, 92, 17, 135 x 72, 97% room air GENERAL: [BMI 24.4, sitting edge of bed, comfortable. EYES: Pupils equal. Conjunctiva bonita l. HEENT: External appearance of nose and ears normal, oral cavity grossly normal. Hard of hearing NECK: JVD not raised; masses not palpable. HEART: First and second heart sounds are normal; no edema. LUNGS: Respiratory rate normal; clear to auscultation. ABDOMEN: Soft, nontender, liver spleen not palpable, no masses palpable. PSYCH: Alert and oriented x3; mood and affect bonita l. MUSCULOSKELETAL:No Clubbing/cyanosis;muscles-grossly intact. Mj wrap over the right knee. OA. NEUROLOGICAL: Cranial nerves grossly intact; no facial asymmetry, power and sensation grossly intact. LYMPHATICS: No lymph nodes palpable in the axilla and neck INVESTIGATIONS, reviewed in the clinical context: April 03, 2024: White count 5.9 hemoglobin 11.6 platelets 191 sodium 142 potassium 4.4 creatinine 0.9 BUN 17.8 Assessment plan: -Right total knee arthroplasty IV cefazolin for infection prophylaxis. Xarelto for DVT prophylaxis. -Primary osteoarthritis multiple joints Pain control as needed -CAD per cardiac catheterization. No stents Aspirin. Lipitor. Lopressor. -Diabetes mellitus type 2 on oral hypoglycemic Glucotrol. Diabetic diet follow Accu-Cheks. Metformin. -Hyperlipidemia Lipitor 80 mg nightly -Essential hypertension Lopressor 25 mg twice daily -Hard of hearing -BPH with symptoms Start Flomax 0.4 mg nightly Care was discussed with patient at the bedside. Questions answered. Thank you Dr. Mcdonald. Past Medical History Past Medical History: Coronary Artery Disease (CAD), Diabetes Mellitus, Hyperlipidemia, Hypertension, Osteoarthritis (OA) Additional Past Medical History / Comment(s): spouse states has "some blockages but not able to have stent" History of Any Multi-Drug Resistant Organisms: None Reported Past Surgical History: Appendectomy, Heart Catheterization, Orthopedic Surgery Additional Past Surgical History / Comment(s): left total knee replacement, left knee meniscus repair, COLONOSCOPY, right total hip arthroplasty Past Anesthesia/Blood Transfusion Reactions: No Reported Reaction Past Psychological History: No Psychological Hx Reported Smoking Status: Former smoker Past Alcohol Use History: Occasional Additional Past Alcohol Use History / Comment(s): quit smoking 2014 yrs ago, smoked 40 yrs. 1ppd Past Drug Use History: None Reported - Past Family History Mother Family Medical History: Cancer Medications and Allergies Home Medications Medication Instructions Recorded Confirmed Type Atorvastatin [Lipitor] 80 mg PO HS 11/07/14 05/01/24 History Metoprolol Tartrate [Lopressor] 25 mg PO BID 11/07/14 05/01/24 History glipiZIDE [Glucotrol] 2.5 mg PO AC-BRKFST 04/05/20 05/01/24 History Aspirin [Adult Low Dose Aspirin EC] 81 mg PO DAILY 11/25/20 05/01/24 History Gabapentin [Neurontin] 300 mg PO BID 02/03/24 05/01/24 History HYDROcodone/APAP 7.5-325MG [Hendrix 1 tab PO TID 05/01/24 05/01/24 History 7.5-325] metFORMIN HCL ER [Glucophage XR] 1,000 mg PO DAILY 05/01/24 05/01/24 History Allergies Allergy/AdvReac Type Severity Reaction Status Date / Time No Known Allergies Allergy Verified 02/08/24 08:53 Physical Exam Vitals: Vital Signs Temp Pulse Resp BP Pulse Ox 05/02/24 17:07 135/72 05/02/24 15:40 97.7 F 92 17 183/89 97 05/02/24 14:58 82 18 128/66 98 05/02/24 14:00 62 18 121/62 98 05/02/24 13:00 60 18 125/63 98 05/02/24 12:30 70 18 121/58 100 05/02/24 11:30 63 16 126/61 99 05/02/24 11:00 46 L 16 125/60 99 05/02/24 10:45 48 L 16 121/60 99 05/02/24 10:30 49 L 16 117/58 99 05/02/24 10:15 57 L 16 106/63 99 05/02/24 10:00 49 L 16 105/54 99 05/02/24 09:45 55 L 16 105/58 96 05/02/24 09:31 97.2 F L 65 16 107/57 96 05/02/24 07:30 58 L 18 168/70 98 05/02/24 07:00 97 F L 59 L 20 177/72 98 Intake and Output 05/02/24 05/02/24 05/02/24 06:59 14:59 22:59 Intake Total 1051 Output Total 50 Balance 1001 Intake: IV 1051 Output: Estimated Blood Loss 50 Other: # Voids 2 Weight 81.5 kg 81.5 kg 81.5 kg Results Labs: Abnormal Lab Results - Last 24 Hours (Table) 05/02/24 Range/Units 16:51 POC Glucose (mg/dL) 307 H (70-110) mg/dL
[2024-05-02 20:36] LABS: Glucose,Whole Blood 281 mg/dL (70-110)
[2024-05-02] MEDS: METOPROLOL TARTRATE 25 MG TAB PO SCH (20:49)
[2024-05-02] MEDS: SENNOSIDES-DOCUSATE SODIUM 1 EACH TAB PO SCH (20:49)
[2024-05-02] MEDS: GABAPENTIN 300 MG CAP PO SCH (20:49)
[2024-05-02] MEDS: HYDROmorphone 0.5 MG/0.5 ML SYRINGE IVP PRN (20:49)
[2024-05-02] MEDS: ATORVASTATIN 80 MG TAB PO SCH (20:49)
[2024-05-02] MEDS: TAMSULOSIN 0.4 MG CAP.ER.24H PO SCH (20:49)
[2024-05-03 02:18] VITALS: TEMP 99.4
[2024-05-03 05:39] LABS: Glucose,Whole Blood 95 mg/dL (70-110)
--- NOTE | 2024-05-03 06:50 | P.PN ---
Progress Note - Text Progress Note Date: 05/03/24 Postoperative day # 1 status post total knee arthroplasty, and adductor canal catheter placed for postoperative analgesia, currently at ropivacaine 0.2% 8 mL per hour and continuous infusion, visual analogue scale is 4-5/10, patient using oral pain medication for breakthrough pain. Assessment and plan= Acute postoperative pain, adductor canal catheter for pain control, pain is well controlled we'll continue the same management.
[2024-05-03] MEDS: RIVAROXABAN 10 MG TAB PO SCH (08:38)
[2024-05-03] MEDS: metFORMIN 500 MG TAB PO SCH (08:38)
[2024-05-03 09:09] VITALS: BP 119/71; PULSE 90; RESP 17
[2024-05-03 09:40] LABS: Basophils # (A) 0.03 X 10*3/uL (0.00-0.10); Basophils % (A) 0.3 %; Eosinophils # (A) 0.01 X 10*3/uL (0.04-0.35); Eosinophils % (A) 0.1 %; HCT 33.6 % (39.6-50.0); HGB 10.8 g/dL (13.0-17.0); Lymphocytes # (A) 1.86 X 10*3/uL (0.90-5.00); Lymphocytes % (A) 15.7 %; MCH 30.8 pg (27.0-32.0); MCHC 32.1 g/dL (32.0-37.0); MCV 95.7 FL (80.0-97.0); Mean Platelet Volume 11.8 FL (9.5-12.2); Monocytes # (A) 1.42 X 10*3/uL (0.20-1.00); NRBC Per 100 WBC 0 X 10*3/uL (0.00-0.01); Neutrophils # (A) 8.48 X 10*3/uL (1.80-7.70); Neutrophils % (A) 71.5 %; Platelet Count 161 X 10*3/uL (140-440); RBC 3.51 X 10*6/uL (4.40-5.60); WBC 11.85 X 10*3/uL (4.50-10.00)
[2024-05-03 11:55] LABS: Glucose,Whole Blood 205 mg/dL (70-110)
--- NOTE | 2024-05-03 12:56 | P.DS ---
Providers Date of admission: 05/02/2024 Expected date of discharge: 05/03/24 Attending physician: Toribio Mcdonald Consults: 05/02/24 09:12 Consult Physician Routine Consulting Provider: Nestor Maki Consult Reason/Comments: medical management s/p right total knee arthoplasty Do you want consulting provider notified?: Yes Primary care physician: Anjel Mcgee Hospital Course: Date of admission: 05/02/2024 Date of discharge: 05/03/2024 Admission diagnosis: Right knee osteoarthritis Discharge diagnosis: Same Attending physician: Dr. Mcdonald Surgical procedures: Right total knee arthroplasty Brief history: Patient is a 73-year-old male with a history of progressive primary right knee osteoarthritis. At this point patient has failed conservative treatment measures and has opted to proceed with a elective right total knee arthroplasty. Hospital course: Details of patient's surgery can be found in operative report. Patient tolerated the procedure well and was subsequently transported to orthopedic floor. Patient's orthopeidc and medical care was provided daily. Patient had daily laboratory tests performed for evaluation of overall blood co unts. Patient had daily physical therapy to include strengthening range of motion as well as education with walker ambulation. Patient was treated with Xarelto for their postoperative DVT prophylaxis during their inpatient stay. Patient was noted to have a relatively uneventful postoperative course. Patient reported satisfactory pain control with oral pain medications by postoperative day 1. Patient showed satisfactory progress with physical therapy. Patient moved steadily through the program and had no difficulty meeting the goals by postoperative day 1. Given patient's otherwise satisfactory course and having met physical therapy goals, plan is to discharge patient home with health services on postoperative day 1. Discharge condition/disposition: Patient will be discharged home with health services in stable condition. Discharge medications: Instructions are given on resumption of patient's normal daily medications per primary care recommendation, in addition patient will be prescribed Sheridan 10 g/325 mg; resume 81 mg aspirin twice a day at home for DVT prophylaxis; stool softener as needed. Discharge instructions: 1. Wound care and infection precautions, keep incision dry and covered while showering, no lotions, creams, moisturizers. No soaking, tubs, pools, hottubs. Do not scrub over the incision. 2. Weight-bear as tolerated with walker / cane until follow-up. 3. Ice and elevate when necessary. Do not exceed 20 minutes per hour with ice pack. 4. Utilize compression sleeve until seen at first follow up appointment. 5. Visiting nursing care. 6. Home physical therapy including home CPM. 7. Pain meds and anticoagulants per prescription. 8. Pain medication has potential to cause constipation. Increase oral fluid and fiber intake. Contact primary care provider if you have not had a bowel movement within 48 hours after discharge 9. No anti-inflammatory medication until discussed at first post operative visit, this including Motrin, Aleve, Mobic, Diclofenac, Aspirin. 10. Follow up in office at 2 weeks postop with Chris Jenkins PA-C / Fer Tirado PA-C 11. Follow up with your primary care doctor 7-10 days after discharge. 12. Contact [facility] with any questions, . Assessment: Right knee osteoarthritis Procedures: Right total knee arthroplasty Patient Condition at Discharge: Good Plan - Discharge Summary Discharge Rx Participant: Yes New Discharge Prescriptions: New Ferrous Sulfate [Feosol] 325 mg PO DAILY #30 tab Tamsulosin [Flomax] 0.4 mg PO PC-SUPPER #30 cap HYDROcodone/APAP 10-325MG [Sheridan 10-325] 1 tab PO Q6HR PRN #24 tab PRN Reason: Pain Continue Metoprolol Tartrate [Lopressor] 25 mg PO BID Atorvastatin [Lipitor] 80 mg PO HS glipiZIDE [Glucotrol] 2.5 mg PO AC-BRKFST Aspirin [Adult Low Dose Aspirin EC] 81 mg PO DAILY Gabapentin [Neurontin] 300 mg PO BID metFORMIN HCL ER [Glucophage XR] 1,000 mg PO DAILY No Action HYDROcodone/APAP 7.5-325MG [Sheridan 7.5-325] 1 tab PO TID Discharge Medication List Atorvastatin [Lipitor] 80 mg PO HS 11/07/14 [History] Metoprolol Tartrate [Lopressor] 25 mg PO BID 11/07/14 [History] glipiZIDE [Glucotrol] 2.5 mg PO AC-BRKFST 04/05/20 [History] Aspirin [Adult Low Dose Aspirin EC] 81 mg PO DAILY 11/25/20 [History] Gabapentin [Neurontin] 300 mg PO BID 02/03/24 [History] HYDROcodone/APAP 7.5-325MG [Sheridan 7.5-325] 1 tab PO TID 05/01/24 [History] metFORMIN HCL ER [Glucophage XR] 1,000 mg PO DAILY 05/01/24 [History] Ferrous Sulfate [Feosol] 325 mg PO DAILY #30 tab 05/03/24 [Rx] HYDROcodone/APAP 10-325MG [Sheridan 10-325] 1 tab PO Q6HR PRN #24 tab 05/03/24 [Rx] Tamsulosin [Flomax] 0.4 mg PO PC-SUPPER #30 cap 05/03/24 [Rx] Follow up Appointment(s)/Referral(s): Fer Tirado PAC [PHYSICIAN [employer] OBSERVER] - 05/17/24 8:40 am [facility],Equipment [NON-STAFF] - As Needed (Continuous Passive Motion knee machine) [facility], [NON-STAFF] - As Needed Anjel Mcgee MD [Primary Care Provider] - 1 Week Patient Instructions/Handouts: Knee Replacement (DC), Knee Replacement (GEN) Activity/Diet/Wound Care/Special Instructions: Orthopedic Discharge Instructions: 1. Wound care and infection precautions, keep incision dry and covered while showering, no lotions, creams, moisturizers. No soaking, pools, hot tubs. Do not scrub over incision. 2. Weight-bear as tolerated with walker / cane until follow-up. 3. Ice and elevate when necessary. Do not exceed 20 minutes per hour with ice pack. 4. Utilize compression sleeve until seen at first follow up appointment. 5. Pain meds and anticoagulants per prescription. 6. Pain medication has potential to cause constipation. Increase oral fluid and fiber intake. Contact primary care provider if you have not had a bowel movement within 48 hours after discharge. 7. No anti-inflammatory medication until discussed at first post operative visit, this including Motrin, Aleve, Mobic, Diclofenac. 8. Follow up in office at 2 weeks postop with Chris Jenkins PA-C / Fer Tirado PA-C 9. Follow up with your primary care doctor 7-10 days after discharge. 10. Contact [facility] with any questions, . Keep incision clean, dry, intact. While showering, cover fusion tape with Saran wrap. Keep fusion tape on until follow-up appointment in office in 2 weeks. Discharge Disposition: HOME WITH HOME HEALTH SERVICES
--- NOTE | 2024-05-03 13:14 | P.PN ---
Subjective Progress Note Date: 05/03/24 Principal diagnosis: Right knee osteoarthritis Patient was seen at bedside as morning sitting up in chair with legs elevated. Patient says he does have a walker home. Patient says he worked with physical therapy this morning walked down the fabian and up-and-down stairs. Patient says he did do well. Patient says he has urinated since surgery yesterday without issue. Patient says most of the pain is having is located in the front of the knee. Patient denies chest pain, fever, shortness breath, nausea, vomiting, change in vision, loss of bowel/bladder control. Objective - Vital Signs Vital signs: Vital Signs Temp 99.4 F 05/03/24 07:25 Pulse 90 05/03/24 07:25 Resp 17 05/03/24 07:25 BP 119/71 05/03/24 07:25 Pulse Ox 96 05/03/24 07:25 FiO2 Intake & Output 05/02/24 05/03/24 05/03/24 18:59 06:59 18:59 Intake Total 1051 Output Total 50 400 Balance 1001 -400 Weight 81.5 kg Intake: IV 1051 Output: Urine 400 Estimated Blood Loss 50 Other: Voiding Method Toilet Urinal # Voids 2 3 # Bowel Movements 2 - Exam Right knee: Incision is clean, dry, and intact. The exofin fusion tape is in good condition. There is minimal soft tissue swelling and ecchymosis surrounding the medial and lateral aspects of the incision. Calf is soft, no tenderness with palpation. Plantar flexion, dorsiflexion, EHL, FHL are intact. Sensory exam to light touch throughout the extremity is intact, dorsal pedis pulses 2+. - Labs CBC & Chem 7: 05/03/24 05:06 Labs: Abnormal Lab Results - Last 24 Hours (Table) 05/02/24 05/02/24 05/03/24 Range/Units 16:51 20:28 05:06 WBC 11.85 H (4.50-10.00) X 10*3/uL RBC 3.51 L (4.40-5.60) X 10*6/uL Hgb 10.8 L (13.0-17.0) g/dL Hct 33.6 L (39.6-50.0) % Immature Gran # 0.05 H (0.00-0.04) X 10*3/uL Neutrophils # 8.48 H (1.80-7.70) X 10*3/uL Monocytes # 1.42 H (0.20-1.00) X 10*3/uL Eosinophils # 0.01 L (0.04-0.35) X 10*3/uL POC Glucose (mg/dL) 307 H 281 H (70-110) mg/dL 05/03/24 Range/Units 11:54 WBC (4.50-10.00) X 10*3/uL RBC (4.40-5.60) X 10*6/uL Hgb (13.0-17.0) g/dL Hct (39.6-50.0) % Immature Gran # (0.00-0.04) X 10*3/uL Neutrophils # (1.80-7.70) X 10*3/uL Monocytes # (0.20-1.00) X 10*3/uL Eosinophils # (0.04-0.35) X 10*3/uL POC Glucose (mg/dL) 205 H (70-110) mg/dL Assessment and Plan Assessment: 1. right knee osteoarthritis - Postoperative day 1 status post right total knee arthroplasty Plan: 1. Right knee osteoarthritis - right total knee arthroplasty performed yesterday, 05/02/2024. Patient stable bedside this morning. Patient did do well with PT/OT this morning. Patient does have a walker for home. Discharge home today with health services. 2. Appreciate medical management 3. Pain management - [place] 4. DVT prophylaxis - Xarelto in hospital. Patient to take aspirin 81mg twice a day at home for DVT prophylaxis 5. GI prophylaxis - senna 6. PT/OT - weightbearing as tolerated with walker 7. Encourage incentive spirometer use 8. Discharge planning - home today with health services
--- NOTE | 2024-05-03 17:05 | P.PN ---
Progress Note - Text Progress Note Date: 05/03/24 - Chief Complaint Right knee surgery - History of Present Illness This is a pleasant 73-year-old patient follows Dr. Kike Mcgee. Chronic stable medical conditions includes CAD with blockages but not stents. Manage medically. Diabetes, hypertension, hyperlipidemia. Hard of hearing. BPH with symptoms. Patient has undergone right total knee arthroplasty. Postprocedure sitting at the edge of the bed. Some pain present. No nausea vomiting. No cardiac symptoms. Accompanied by his . Normally has a bowel movement once every 7 days. May 03: Pain controlled. Did ambulate. Tolerated diet. No cardiac symptoms. Questions answered. Patient was given a prescription for Flomax and ferrous sulfate. Medications reviewed Social history: Patient is average risk pack a day for about 40 years stopped in 2013. . Used to work for [employer]. Retired. Drinks about 2-3 beers a week Physical examination: VITAL SIGNS: 99.4, 90, 17, 119/71, 96% room air GENERAL: Reclining, comfortable EYES: Pupils equal. Conjunctiva bonita l. HEENT: External appearance of nose and ears normal, oral cavity grossly normal. Hard of hearing NECK: JVD not raised; masses not palpable. HEART: First and second heart sounds are normal; no edema. LUNGS: Respiratory rate normal; clear to auscultation. ABDOMEN: Soft, nontender, liver spleen not palpable, no masses palpable. PSYCH: Alert and oriented x3; mood and affect bonita l. MUSCULOSKELETAL:No Clubbing/cyanosis;muscles-grossly intact. Mj wrap over the right knee. OA. INVESTIGATIONS, reviewed in the clinical context: May 03: White 11.8 hemoglobin 10.8 platelets 161 April 03, 2024: White count 5.9 hemoglobin 11.6 platelets 191 sodium 142 potassium 4.4 creatinine 0.9 BUN 17.8 Assessment plan: -Right total knee arthroplasty IV cefazolin for infection prophylaxis. Xarelto for DVT prophylaxis. -Primary osteoarthritis multiple joints Pain control as needed -Acute postprocedure blood loss anemia expected from surgery Ferrous sulfate -CAD per cardiac catheterization. No stents Aspirin. Lipitor. Lopressor. -Diabetes mellitus type 2 on oral hypoglycemic Glucotrol. Diabetic diet follow Accu-Cheks. Metformin. -Hyperlipidemia Lipitor 80 mg nightly -Essential hypertension Lopressor 25 mg twice daily -Hard of hearing -BPH with symptoms Start Flomax 0.4 mg nightly Follow-up with PCP. Flomax and ferrous sulfate added. Thank you Dr. Mcdonald. Past Medical History Past Medical History: Coronary Artery Disease (CAD), Diabetes Mellitus, Hyperlipidemia, Hypertension, Osteoarthritis (OA) Additional Past Medical History / Comment(s): spouse states has "some blockages but not able to have stent" History of Any Multi-Drug Resistant Organisms: None Reported Past Surgical History: Appendectomy, Heart Catheterization, Orthopedic Surgery Additional Past Surgical History / Comment(s): left total knee replacement, left knee meniscus repair, COLONOSCOPY, right total hip arthroplasty Past Anesthesia/Blood Transfusion Reactions: No Reported Reaction Past Psychological History: No Psychological Hx Reported Smoking Status: Former smoker Past Alcohol Use History: Occasional Additional Past Alcohol Use History / Comment(s): quit smoking 2014 yrs ago, smoked 40 yrs. 1ppd Past Drug Use History: None Reported
== END 2024-05-03 14:50 | disposition home health service (06) ==
LOC: OR 05:46 → 4SSUR 09:31 → OR 05-03 14:50
PROVIDERS: ATTEND Orthopaedic Surgery
DX: M17.11 Unilateral primary osteoarthritis, right knee
CPT/HCPCS: 64448; 64999; 85025

== ENCOUNTER → 2025-03-23 | Outpatient (CLI) | payer MEDICARE ==
--- NOTE | 2025-03-24 08:55 | MR ---
INDICATION: Patient age:Male; 74 years old; Reason for study: M47.22,M62.81,R29.6,R26.81; [facility]. COMPARISON: Cervical spine radiograph 03/21/2025. TECHNIQUE: Multi planar, multi sequence imaging was performed of the cervical spine. No Gadolinium wa s given. FINDINGS: Alignment: The cervical vertebral bodies have preserved heights. Grade 1 retrolisthesis of C3 on C4, C4 on C5 and C5 on C6. Bones: Multilevel anterior osteophytosis. Multilevel type I Modic changes from C3 through C7. Cord: Long segment increased T2 signal within the central spinal cord extending from the C2 level thr ough the C7 level. Discs: Multilevel disc desiccation is present. C2-C3: No significant disc pathology. The spinal canal is patent. Left-sided facet arthropathy. Mild left neural foraminal stenosis. The right neural foramen is patent. C3-C4: Posterior disc osteophyte complex resulting in moderate spinal canal stenosis. Uncovertebral j oint hypertrophy. Severe bilateral neural foraminal stenosis. C4-C5: Posterior disc osteophyte complex resulting in moderate spinal canal stenosis. Left-sided face t arthropathy. Uncovertebral joint hypertrophy. Moderate to severe right and severe left neural graham inal stenosis. C5-C6: Posterior disc osteophyte complex resulting in moderate spinal canal stenosis. Uncovertebral j oint hypertrophy. Moderate to severe right and severe left neural foraminal stenosis. C6-C7: Posterior disc osteophyte complex with moderate spinal canal stenosis. Uncovertebral joint hyp ertrophy. Moderate to severe bilateral neural foraminal stenosis. C7-T1: Broad-based disc bulge without significant spinal canal stenosis. Uncovertebral joint hypertro phy. Mild right and moderate left neural foraminal stenosis. Other: None. IMPRESSION: Advanced multilevel disc degeneration with associated osteoarthritic changes from C3 through C7. Mult ilevel posterior disc osteophyte complexes resulting in multilevel moderate spinal canal stenosis and varying degrees of neural foraminal stenosis. 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 [facility], , 03/24/2025 8:53 AM
== END | disposition home or self-care (01) ==
LOC: RADMRIMAIN 15:01
PROVIDERS: ATTEND Orthopaedic Surgery
DX: M48.02 Spinal stenosis, cervical region (principal); M50.023 Cervical disc disorder at C6-C7 level with myelopathy; M50.123 Cervical disc disorder at C6-C7 level with radiculopathy; M47.22 Other spondylosis with radiculopathy, cervical region; R26.81 Unsteadiness on feet; M25.78 Osteophyte, vertebrae
CPT/HCPCS: 72141

== ENCOUNTER → 2025-03-30 | Outpatient (CLI) | payer MEDICARE ==
--- NOTE | 2025-03-30 14:48 | CT ---
EXAMINATION TYPE: CT cervical spine wo con CT DLP: 1268.3 mGycm, Automated exposure control for dose reduction was used. DATE OF EXAM: 03/30/2025 2:27 PM COMPARISON: MR cervical spine 03/23/2025. CLINICAL INDICATION:Male, 74 years old with history of M48.02, M47.812; PHH, unable to use hands, arm s or legs, surgery scheduled, pain TECHNIQUE: Axial CT images from the skull base to the inferior aspect of T2 we obtained without intra venous contrast. Coronal and sagittal reformatted images were also reviewed. FINDINGS: Fracture: None. Osseous structures: Multilevel disc space narrowing with endplate sclerosis and anterior osteophytosi s most prominent from C3 through C7. Multilevel uncovertebral joint hypertrophy and facet arthropathy . Vertebral alignment: Reversal of the normal cervical lordosis. Grade 1 retrolisthesis of C3 on C4, C4 on C5 and C5 on C6. Spinal canal/Neural Foramina: Posterior disc osteophyte complexes at C3-C4, C4-C5, C5-C6 and C6-C7 re sulting in at least moderate spinal canal stenosis as seen on recent MRI. Multilevel varying degrees of neural foraminal stenosis secondary to facet arthropathy and uncovertebral joint hypertrophy. Ailyn re bilateral neural foraminal stenosis and C3-C4, C4-C5, C5-C6, and C6-C7. Moderate left neural graham inal stenosis at C7-T1 and mild right neural foraminal stenosis at this level. Neck soft tissues: Prevertebral soft tissues are within normal limits. Other: The airway is patent. The lung apices are clear. Minimal mucosal thickening in the inferior ri ght maxillary sinus. Minimal left mastoid effusion. Atherosclerotic calcification of the internal car otid arteries in the cavernous portion. Moderate calcifications at the bilateral carotid bifurcations . Bilateral palatine tonsils. Mild biapical pleural-parenchymal scarring. IMPRESSION: 1. No evidence of cervical spine fracture. 2. Advanced multilevel degenerative disc disease with associated osteoarthritic changes from C3 throu gh C7. Multilevel moderate spinal canal stenosis with varying degrees of neural foraminal stenosis fr om C3 through C7. This corresponds to recent MR findings. [facility], , 03/30/2025 2:46 PM
--- NOTE | 2025-03-30 14:58 | CT ---
EXAMINATION TYPE: CT thoracic spine wo con CT DLP: 1268.3 mGycm, Automated exposure control for dose reduction was used. DATE OF EXAM: 03/30/2025 2:28 PM COMPARISON: CT cervical spine 03/30/2025, MR cervical spine 03/23/2025. CLINICAL INDICATION:Male, 74 years old with history of M48.02, M47.812; PHH, unable to use hands, arm s or legs, surgery scheduled, pain TECHNIQUE: Axial images of the thoracic spine were obtained without contrast. Coronal and sagittal re formats were performed. 3-D reformats of the bones were created on a separate workstation and submitt ed for review. FINDINGS: The thoracic vertebral bodies have preserved heights and alignment. Multilevel small Schmo rl's nodes. Posterior disc osteophyte complex at T6-T7 with mild spinal canal stenosis. Calcified central disc pr otrusion with superior migration of disc material at the T7-T8 level. The disc material extends appro ximately 1.6 cm on the posterior cortex of the T7 vertebral body. Results in moderate spinal canal st enosis (series 2, image 62). Calcified left paracentral disc protrusion at T8-T9 with superior migrat ion disc material approximately 5 mm along the posterior cortex of the T8 vertebral body. Resultant m ild spinal canal stenosis. Broad-based disc bulge at T9-T10 with mild spinal canal stenosis. Posterio r disc osteophyte complex at T10-T11 with mild spinal canal stenosis. No other significant spinal can al stenosis of the thoracic spine. Bilateral neural foraminal stenosis at T9-T10 and T10-T11. No othe r significant neural foraminal stenosis. Please refer to dedicated CT cervical spine of the same day for findings. Mild biapical pleural-parenchymal scarring. Otherwise the visualized lungs are clear. Atherosclerotic calcification of the aorta and its branches. At least moderate coronary artery calcifications. Left adrenal gland 1.8 cm nodule with Hounsfield unit of -1. Consistent with a benign lipid rich adenoma. IMPRESSION: 1. No acute thoracic spinal fracture. 2. Moderate multilevel degenerative disc disease as described above. Calcified disc protrusions with migration of disc material at T7-T8 and T8-T9. Moderate spinal canal stenosis at T7-T8. Mild spinal c anal stenosis at T8-T9. Multilevel mild spinal canal stenosis as described above. 3. Left adrenal gland 1.8 cm benign lipid rich adenoma. [facility], , 03/30/2025 2:55 PM
[2025-03-30 18:25] LABS: Basophils # (A) 0.06 X 10*3/uL (0.00-0.10); Basophils % (A) 0.9 %; Eosinophils # (A) 0.39 X 10*3/uL (0.04-0.35); Eosinophils % (A) 5.7 %; HCT 35.1 % (39.6-50.0); HGB 11.3 g/dL (13.0-17.0); Immature Grans, Automated 0.30 %; Lymphocytes # (A) 1.68 X 10*3/uL (0.90-5.00); Lymphocytes % (A) 24.5 %; MCH 32.2 pg (27.0-32.0); MCHC 32.2 g/dL (32.0-37.0); MCV 100.0 FL (80.0-97.0); Monocytes # (A) 0.68 X 10*3/uL (0.20-1.00); Monocytes % (A) 9.9 %; NRBC Per 100 WBC 0 X 10*3/uL (0.00-0.01); Neutrophils # (A) 4.04 X 10*3/uL (1.80-7.70); Neutrophils % (A) 58.7 %; Platelet Count 220 X 10*3/uL (140-440); RBC 3.51 X 10*6/uL (4.40-5.60); RDW 13.0 % (11.5-14.5); WBC 6.87 X 10*3/uL (4.50-10.00)
[2025-03-30 18:59] LABS: ALT 15 U/L (10-49); AST 22 U/L (14-35); Albumin 4.2 g/dL (3.8-4.9); Albumin/Globulin Ratio 1.56 Ratio (1.60-3.17); Alkaline Phosphatase 75 U/L (41-126); Anion Gap 12.60 mmol/L (4.00-12.00); BUN/Creat Ratio 21.45 Ratio (12.00-20.00); Blood Urea Nitrogen 23.6 mg/dL (9.0-27.0); Calcium 9.7 mg/dL (8.7-10.3); Carbon Dioxide 24.4 mmol/L (21.6-31.8); Chloride 104 mmol/L (96-109); Globulin 2.7 g/dL (1.6-3.3); Glucose 69 mg/dL (70-110); Potassium 5.1 mmol/L (3.5-5.5); Sodium 141 mmol/L (135-145); Total Protein 6.9 g/dL (6.2-8.2)
[2025-03-30 19:14] LABS: INR 1.01 sec (0.93-1.11); Prothrombin Time 11.3 sec (9.9-11.9)
== END | disposition home or self-care (01) ==
LOC: RADCTMAIN 11:39
PROVIDERS: ATTEND Orthopaedic Surgery
DX: Z01.818 Encounter for other preprocedural examination (principal); M48.02 Spinal stenosis, cervical region; M47.812 Spondylosis without myelopathy or radiculopathy, cervical region; M50.31 Other cervical disc degeneration, high cervical region; M51.24 Other intervertebral disc displacement, thoracic region; M48.04 Spinal stenosis, thoracic region; D35.02 Benign neoplasm of left adrenal gland; Z22.322 Carrier or suspected carrier of Methicillin resistant Staphylococcus aureus
CPT/HCPCS: 72125; 72128; 80053; 85025; 85610; 86850; 86900; 86901; 87070; 93005; 99215